=== PATIENT | female | born 1960 | race Caucasian/White ===

== ENCOUNTER 2020-05-21 21:13 | Emergency (ER) | payer OTHER ==
[2020-05-21] MEDS ORDERED: MORPHINE 4 MG/ML SYR ONE (21:53)
[2020-05-21] MEDS ORDERED: ONDANSETRON 4 MG/2 ML VIAL ONE (21:53)
[2020-05-21] MEDS ORDERED: TETANUS & DIPHTHERIA TOX,ADULT 0.5 ML VIAL ONE (22:07)
[2020-05-21] MEDS ORDERED: HYDROMORPHONE HCL 0.5 MG/0.5 ML INJ ONE (22:26)
[2020-05-21 22:32] LABS: Albumin 3.4 g/dL (3.4-5.0); Bilirubin Total 0.5 mg/dL (0.2-1.0); Protein, Total 6.8 g/dL (6.4-8.2)
[2020-05-21] MEDS ORDERED: CROTALIDAE ANTIVENIM 1 GM VIAL IV ONE (22:39)
[2020-05-21 22:42] LABS: Protime INR 0.99
[2020-05-21] MEDS ORDERED: NA CHLORIDE 0.9% 1,000 ML ONE (22:42)
[2020-05-21] MEDS ORDERED: DIPHENHYDRAMINE 50 MG/ML VIAL ONE (22:54)
--- NOTE | 2020-05-21 22:56 | ER ---
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 Noted bluish skin discoloration at dorsum of R foot and swelling of R foot. Coronavirus screen: Client denies travel out of the [place] in the last 14 days. At this time, the client does not indicate any symptoms associated with coronavirus-19. Ebola Screen: Patient negative for fever greater than or equal to 101.5 degrees Fahrenheit, and additional compatible Ebola Virus Disease symptoms Patient denies exposure to infectious person. Patient denies travel to an Ebola-affected area in the 21 days before illness onset. No symptoms or risks identified at this time. Initial Sepsis Screen: Does the patient meet any 2 criteria? No. Patient's initial sepsis screen is negative. Does the patient have a suspected source of infection? No. Patient's initial sepsis screen is negative. Risk Assessment: Do you want to hurt yourself or someone else? Patient reports no desire to harm self or others. Onset of symptoms was May 21, 2020. 16:20 Method Of Arrival: Wheelchair ca1 16:20 Acuity: MADAN 2 ca1 Triage Assessment: 21:38 Bite description: bite sustained to right foot by a snake, animal information: ea vaccination(s) is not applicable. Historical: - Home Meds: 23:11 lisinopril 10 mg oral tab 1 tab once daily [Active]; omeprazole 40 mg oral cpDR 1 cap ea once daily [Active]; venlafaxine 75 mg oral tab 1 tab 2 times per day [Active]; - PMHx: 21:34 Hypertension; ca1 - PSHx: 21:34 ; ca1 - Immunization history:: Flu vaccine is not up to date. - Social history:: Smoking status: Reported history of juuling and/or vaping. - Family history:: not pertinent. Screenin:40 Abuse screen: Denies threats or abuse. Nutritional screening: No deficits noted. ea Tuberculosis screening: No symptoms or risk factors identified. Fall Risk IV access (20 points). Assessment: 21:38 General: Appears in no apparent distress. Behavior is calm, cooperative, appropriate ea for age. Pain: Complains of pain in right leg. Neuro: Level of Consciousness is awake, alert, obeys commands, Oriented to person, place, time. Cardiovascular: Patient's skin is warm and dry. Respiratory: Airway is patent Respiratory effort is even, unlabored, Respiratory pattern is regular, symmetrical. Derm: Skin edema noted to right foot, bruising to right foot, puncture king noted near right great toe. 22:10 Reassessment: reports pain is not getting better with the morphine, provider notified, em received VO for 0.5 mg Dilaudid IVP x 1. 23:49 Reassessment: Report given to Lisa DEL TORO at [facility]. Awaiting on EMS for transfer. ea 05/22 00:00 Reassessment: Patient and/or family updated on plan of care and expected duration. Pain ea level reassessed. Patient is alert, oriented x 3, equal unlabored respirations, skin warm/dry/pink. 01:56 Reassessment: Patient and/or family updated on plan of care and expected duration. Pain ea level reassessed. Patient is alert, oriented x 3, equal unlabored respirations, skin warm/dry/pink. EMS at facility for tranfer, report given to EMS. Pt left ED via stretcher per EMS. Pt tolerating well. Vital Signs: 05/21 16:20 BP 133 / 86; Pulse 107; Resp 18 S; Temp 98.3(TE); Pulse Ox 100% on R/A; Weight 81.65 kg ca1 (R); Height 5 ft. 6 in. (167.64 cm) (R); Pain 9/10; 23:06 BP 145 / 90; Pulse 73; Resp 18; Pulse Ox 98% ; ea 05/22 00:00 BP 137 / 80; Pulse 78; Resp 18; Pulse Ox 98% on R/A; ea 01:45 BP 150 / 68; Pulse 80; Resp 18; Temp 98.2; Pulse Ox 98% ; ea 05/21 16:20 Body Mass Index 29.05 (81.65 kg, 167.64 cm) ca1 ED Course: 05/21 21:16 Patient arrived in ED. ag3 21:32 Ahmet Ariza MD is Attending Physician. ma2 21:32 Triage completed. ca1 21:34 Arm band placed on right wrist. ca1 21:38 Ave Pimentel, KATEY is Primary Nurse. ea 21:38 Inserted saline lock: 22 gauge in right hand, using aseptic technique. ea 21:40 Patient has correct armband on for positive identification. Bed in low position. Call ea light in reach. 22:38 Initiated transfer at [facility]. Was informed they would have to decline tt3 due to ICU saturation. 23:02 Inserted saline lock: 22 gauge in left antecubital area, using aseptic technique. ea 23:02 No provider procedures requiring assistance completed. Patient transferred, IV remains ea in place. 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 Lot #: [id number]. } Route: IM; Site: left deltoid; 23:00 Follow up: Response: No adverse reaction ea 22:14 Drug: Dilaudid (HYDROmorphone) 0.5 mg Route: IVP; Site: right hand; em 23:00 Follow up: Response: No adverse reaction ea 22:45 Drug: CroFab 6 vials Route: IV; Rate: calculated rate; Site: right hand; ea 23:45 Follow up: Urine output 54 ml; Response: No adverse reaction; IV Status: Completed ea infusion; IV Intake: 1000ml 22:45 Drug: Benadryl (diphenhydrAMINE) 50 mg Route: IVP; Site: right hand; ea 05/22 01:59 Follow up: Response: No adverse reaction ea 05/21 23:02 Drug: Dilaudid (HYDROmorphone) 1 mg Route: IVP; Site: right hand; ea 05/22 01:59 Follow up: Response: No adverse reaction ea 01:28 Drug: Tylenol 1000 mg Route: PO; ea 01:59 Follow up: Response: No adverse reaction ea Intake: 05/21 23:45 IV: 1000ml; Total: 1000ml. ea Output: 23:45 Urine: 54ml; Total: 54ml. ea Outcome: 22:55 ER care complete, transfer ordered by . ma2 23:03 Instructed on the need for transfer, Demonstrated understanding of instructions. ea 05/22 01:55 Transferred by ground EMS to [facility], Transfer form completed. ea Condition: stable 01:59 Patient left the ED. ea Signatures: Maximino Sierra, RN RN Ave Gaviria RN Ahmet Darling ea, MD MD ma2 Jana Jain ag3 Jalzyn Weiss RN RN [facility] Clement Cavazos tt3 Corrections: (The following items were deleted from the chart) 05/21 23:11 21:34 Allergies: No Known Allergies; [facility] 23:11 21:34 Home Meds: Lisinopril Oral; [facility] 23:11 21:34 Home Meds: Omeprazole Oral; [facility] ea
--- NOTE | 2020-05-21 22:56 | EDPHYS ---
Physician Documentation [facility] Name: Zachary Paige Age: 59 yrs Sex: Female : 1960 Arrival Date: 05/21/2020 Time: 21:16 Bed 20 Private MD: ED Physician Ahmet Ariza HPI: 05/21 21:43 This 59 yrs old Female presents to ER via Wheelchair with complaints of Snake ma2 bite. 21:43 The patient was bitten on the right foot, by a snake, COPPERMANASA. Onset: The ma2 symptoms/episode began/occurred suddenly, 0.45 hour(s) ago. Associated signs and symptoms: Pertinent negatives: fever, loss of consciousness, motor deficit, pain at site. Severity of symptoms: At their worst the symptoms were moderate, in the emergency department the symptoms are unchanged. The patient has not experienced similar symptoms in the past. Historical: - Home Meds: 23:11 lisinopril 10 mg oral tab 1 tab once daily [Active]; omeprazole 40 mg oral cpDR 1 cap ea once daily [Active]; venlafaxine 75 mg oral tab 1 tab 2 times per day [Active]; - PMHx: 21:34 Hypertension; ca1 - PSHx: 21:34 ; ca1 - Immunization history:: Flu vaccine is not up to date. - Social history:: Smoking status: Reported history of juuling and/or vaping. - Family history:: not pertinent. ROS: 21:43 Constitutional: Negative for fever, chills, and weight loss. ma2 21:44 All other systems are negative. ma2 Exam: 21:44 Constitutional: This is a well developed, well nourished patient who is awake, alert, ma2 and in no acute distress. Chest/axilla: Normal chest wall appearance and motion. Nontender with no deformity. No lesions are appreciated. Cardiovascular: Regular rate and rhythm with a normal S1 and S2. No gallops, murmurs, or rubs. Normal PMI, no JVD. No pulse deficits. Respiratory: Lungs have equal breath sounds bilaterally, clear to auscultation and percussion. No rales, rhonchi or wheezes noted. No increased work of breathing, no retractions or nasal flaring. Abdomen/GI: Soft, non-tender, with normal bowel sounds. No distension or tympany. No guarding or rebound. No evidence of tenderness throughout. Back: No spinal tenderness. No costovertebral tenderness. Full range of motion. Skin: Warm, dry with normal turgor. Normal color with no rashes, no lesions, and no evidence of cellulitis. MS/ Extremity: SNAKE BIT ON MEDIAL ASPECT OF RIGHT FOOT, WITH SWELLING AND BLUE DISCOLORATIOIN LIMITED BELOW MALLEOLI, OTHERWISE Pulses equal, no cyanosis. Neurovascular intact. Full, normal range of motion. Neuro: Awake and alert, GCS 15, oriented to person, place, time, and situation. Cranial nerves II-XII grossly intact. Motor strength 5/5 in all extremities. Sensory grossly intact. Cerebellar exam normal. Normal gait. Vital Signs: 16:20 BP 133 / 86; Pulse 107; Resp 18 S; Temp 98.3(TE); Pulse Ox 100% on R/A; Weight 81.65 kg ca1 (R); Height 5 ft. 6 in. (167.64 cm) (R); Pain 9/10; 23:06 BP 145 / 90; Pulse 73; Resp 18; Pulse Ox 98% ; ea 05/22 00:00 BP 137 / 80; Pulse 78; Resp 18; Pulse Ox 98% on R/A; ea 01:45 BP 150 / 68; Pulse 80; Resp 18; Temp 98.2; Pulse Ox 98% ; ea 05/21 16:20 Body Mass Index 29.05 (81.65 kg, 167.64 cm) ca1 MDM: 05/21 21:44 Differential diagnosis: superficial laceration, cellulitis, COPPERHEAD SNAKE BITE WITH ma2 LIMITED SWELLING AND LOCAL PAIN AT THIS TIME, AREA IS MARKED, WILL OBSERVE AND CONTINUE TO EVALUATE, NO INDICATION FOR CROFAB AT THIS TIME. 22:52 Data reviewed: vital signs, nurses notes. Counseling: I had a detailed discussion with ma2 the patient and/or guardian regarding: the historical points, exam findings, and any diagnostic results supporting the discharge/admit diagnosis, the presence of at least one elevated blood pressure reading (>120/80) during this emergency department visit, the need to transfer to another facility. Response to treatment: the patient's symptoms have markedly improved after treatment. ED course: patient requires transfer d/t received crofab d/t extension of swelling and pain 2 inches above ankle in less than an hour, vs wnl, lab non critical.. she needs icu and toxicology whcihc is not available in our hospital, will transfer for higher level of care . 22:55 Patient medically screened. ma2 05/21 21:42 Order name: CBC with Diff ma2 05/21 21:42 Order name: CMP ma2 05/21 21:42 Order name: Ptt, Activated ma2 05/21 21:42 Order name: PT-INR ma2 05/21 21:42 Order name: Fibrinogen ri2 05/21 21:42 Order name: CBC with Automated Diff EDMS 05/21 21:42 Order name: Comprehensive Metabolic Panel; Complete Time: 22:52 EDMS 05/21 21:42 Order name: PTT, Activated Partial Thromb; Complete Time: 22:52 EDMS 05/21 21:42 Order name: Protime (+INR); Complete Time: 22:52 EDMS 05/21 21:42 Order name: Fibrinogen; Complete Time: 22:52 EDMS 05/21 22:24 Order name: COVID-19 : Document "Date of Symptom Onset" if Symptomatic. 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 Lot #: [id number]. } Route: IM; Site: left deltoid; 23:00 Follow up: Response: No adverse reaction ea 22:14 Drug: Dilaudid (HYDROmorphone) 0.5 mg Route: IVP; Site: right hand; em 23:00 Follow up: Response: No adverse reaction ea 22:45 Drug: CroFab 6 vials Route: IV; Rate: calculated rate; Site: right hand; ea 23:45 Follow up: Urine output 54 ml; Response: No adverse reaction; IV Status: Completed ea infusion; IV Intake: 1000ml 22:45 Drug: Benadryl (diphenhydrAMINE) 50 mg Route: IVP; Site: right hand; ea 05/22 01:59 Follow up: Response: No adverse reaction ea 05/21 23:02 Drug: Dilaudid (HYDROmorphone) 1 mg Route: IVP; Site: right hand; ea 05/22 01:59 Follow up: Response: No adverse reaction ea 01:28 Drug: Tylenol 1000 mg Route: PO; ea Follow up: Response: No adverse reaction ea Disposition: 05/21/20 22:55 Transfer ordered to [facility]. Diagnosis is Toxic effect of unspecified snake venom, accidental (unintentional). - Reason for transfer: Higher level of care. - Accepting physician is OSH. - Condition is Stable. - Problem is new. - Symptoms are unchanged. Signatures: Dispatcher [employer] EDMS Maximino Sierra RN RN em Antunez, Elena, RN RN ea Alzahri, Mohammad, MD MD ri2 Jazlyn Weiss RN RN ca1 Corrections: (The following items were deleted from the chart) 05/21 22:40 22:24 CORONAVIRUS ordered. EDMS EDMS 23:11 21:34 Allergies: No Known Allergies; ca1 ea 23:11 21:34 Home Meds: Lisinopril Oral; ca1 ea 23:11 21:34 Home Meds: Omeprazole Oral; ca1 ea 05/22 01:59 05/21 22:55 05/21/2020 22:55 Transfer ordered to [facility]. Diagnosis is ea Toxic effect of unspecified snake venom, accidental (unintentional). Reason for transfer: Higher level of care. Accepting physician is OSH. Condition is Stable. Problem is new. Symptoms are unchanged. maKendall
[2020-05-21] MEDS ORDERED: HYDROMORPHONE HCL 1 MG/ML INJ ONE (23:05)
[2020-05-21 23:11] LABS: Absolute Lymphocytes (CBC) 1.9 K/uL (0.7-4.9); Basophils % 0.7 % (0-1.3); Hematocrit 37.4 % (36.0-45.0); Lymphocytes % 31.8 % (15.3-44.8); MPV 9.7 fL (7.6-11.3); RBC Red Blood Cell Count 4.19 M/uL (3.86-4.86)
[2020-05-22] MEDS ORDERED: ACETAMINOPHEN 500 MG TAB ONE (01:15)
[2020-05-22 02:12] VITALS: O2SAT 98
[2020-05-22 02:15] VITALS: BP 150/68; TEMP 98.2
== END 2020-05-22 01:59 | disposition short-term general hospital (02) ==
LOC: ER 21:13
DX: T63.091A Toxic effect of venom of other snake, accidental (unintentional), initial encounter (principal); Z23 Encounter for immunization; F17.290 Nicotine dependence, other tobacco product, uncomplicated; I10 Essential (primary) hypertension; Z20.822 Contact with and (suspected) exposure to COVID-19
CPT/HCPCS: 85025; 36415; 85384; 85610; 85730; 80053; 90714; U0003; J1200; J0840; J1170 ×2; J7030; J2405; 90471; 99285

== ENCOUNTER 2021-10-10 04:41 | Emergency (ER) | payer OTHER ==
[2021-10-10] MEDS ORDERED: MORPHINE 2 MG/ML SYR ONE (05:14)
[2021-10-10] MEDS ORDERED: NA CHLORIDE 0.9% 1,000 ML ONE (05:14)
[2021-10-10] MEDS ORDERED: ONDANSETRON 4 MG/2 ML VIAL ONE (05:14)
[2021-10-10 06:44] LABS: Absolute Lymphocytes (CBC) 1.6 K/uL (0.7-4.9); Hematocrit 38.1 % (36.0-45.0); Lymphocytes % 18.2 % (15.3-44.8); MCV 87.3 fL (80-100); MPV 8.8 fL (7.6-11.3); RBC Red Blood Cell Count 4.37 M/uL (3.86-4.86)
[2021-10-10 06:55] LABS: Bilirubin Total 0.6 mg/dL (0.2-1.0); Potassium 3.9 mmol/L (3.5-5.1); Protein, Total 6.1 g/dL (6.4-8.2)
[2021-10-10 07:14] LABS: Urine Blood Negative (Negative); Urine Glucose Negative (Negative); Urine Protein Negative (Negative); Urine Specific Gravity <=1.005 (1.005-1.030)
--- NOTE | 2021-10-10 07:15 | RAD REPORT ---
EXAM DESCRIPTION: CT - Head Brain Wo Cont - 10/10/2021 6:53 am CLINICAL HISTORY: new headache, vomiting COMPARISON: CT head 05/24/2008 TECHNIQUE: Axial 5 mm thick images of the head were obtained without IV contrast. All CT scans are performed using dose optimization technique as appropriate and may include automated exposure control or mA/KV adjustment according to patient size. FINDINGS: No intracranial hemorrhage, mass, edema or shift of mid-line structures. No acute infarcti on changes seen. No abnormal extra-axial fluid collections. Ventricles are normal. Mastoid air cells are clear. Right-sided sphenoid sinus is fully opacified with thickened sinus cerrato . This was present to a slightly less degree in 2008. No acute bony findings. IMPRESSION: Negative non-contrast CT head examination for acute fine. Chronic sphenoid sinusitis.
--- NOTE | 2021-10-10 07:18 | RAD REPORT ---
EXAM DESCRIPTION: CT - Abdomen Pelvis W Contrast - 10/10/2021 7:00 am CLINICAL HISTORY: Abdominal pain, acute, nonlocalized COMPARISON: CT ABD PELVIS W CONTRAST dated 04/01/2015 TECHNIQUE: Biphasic, helical CT imaging of the abdomen and pelvis was performed following 100 ml non -ionic IV contrast. No oral contrast administered. All CT scans are performed using dose optimization technique as appropriate and may include automated exposure control or mA/KV adjustment according to patient size. FINDINGS: No suspicious findings in the lung bases. The liver, spleen, and pancreas show no suspicious findings. Punctate liver capsule and parenchymal c alcifications are present and stable. No gallbladder or biliary tree abnormality. Symmetric renal function is seen with no hydronephrosis or suspicious renal mass. No pyelonephritis o r acute parenchymal process. No bladder abnormalities. No new adrenal finding. Approximately 16 ti meter low-density left adrenal mass is stable since 2016. Uterus and ovaries show no suspicious findi ngs for patient age. No dilated bowel loops or bowel wall thickening. Patient has a mobile cecum positioned in the anterio r right mid abdomen. No appendicitis findings. No free air, free fluid or inflammatory stranding. No hernia, mass or bulky lymphadenopathy. No suspicious bony findings. Disc and bone degenerative changes are present. IMPRESSION: Contrast enhanced CT abdomen and pelvis showing no acute or emergent finding.
[2021-10-10 07:26] LABS: Urine Bacteria <20 /HPF (<20); Urine RBC <5 /HPF (None Seen)
[2021-10-10] MEDS ORDERED: KETOROLAC 30 MG/ML INJ ONE (08:05)
--- NOTE | 2021-10-10 08:16 | ER ---
Nurse's Notes [facility] Name: Zachary Paige Age: 61 yrs Sex: Female : 1960 Arrival Date: 10/10/2021 Time: 04:45 Bed 14 Private MD: Diagnosis: Myalgia;Headache;Abdominal pain, Generalized;Muscle spasm Presentation: 10/10 04:49 Chief complaint: EMS states: Abdominal pain, N/V , legs cramps and headache since 5 ke1 days. Coronavirus screen: Vaccine status: Patient reports being unvaccinated. Ebola Screen: No symptoms or risks identified at this time. Initial Sepsis Screen: Does the patient meet any 2 criteria? No. Patient's initial sepsis screen is negative. Does the patient have a suspected source of infection? No. Patient's initial sepsis screen is negative. Risk Assessment: Do you want to hurt yourself or someone else? Patient reports no desire to harm self or others. Onset of symptoms was October 05, 2021. 04:49 Method Of Arrival: EMS: [place] [id number] 04:49 Acuity: MADAN 3 ke1 Triage Assessment: 04:53 General: Appears in no apparent distress. Behavior is appropriate for age. Pain: ke1 Complains of pain in abdomen + both legs Pain currently is 7 out of 10 on a pain scale. Quality of pain is described as crampy. 04:58 Neuro: Level of Consciousness is awake, alert, Oriented to person, place, time, ke1 situation. Respiratory: Respiratory effort is even, unlabored. Musculoskeletal: Range of motion: intact in all extremities. Historical: - Allergies: 04:53 No Known Allergies; ke1 - PMHx: 04:53 Hypertension; ke1 - Immunization history:: Adult Immunizations Client reports having NOT received the Covid vaccine. - Social history:: Smoking status: Patient/guardian denies using tobacco, the patient reports quitting approximately 3 years ago. - Family history:: not pertinent. - Hospitalizations: : No recent hospitalization is reported. Screenin:58 Abuse screen: Denies threats or abuse. Nutritional screening: No deficits noted. ke1 Tuberculosis screening: No symptoms or risk factors identified. Fall Risk No fall in past 12 months (0 pts). No secondary diagnosis (0 pts). No IV (0 pts). Ambulatory Aid- None/Bed Rest/Nurse Assist (0 pts). Gait- Weak (10 pts.). Mental Status- Oriented to own ability (0 pts). Total Díaz Fall Scale indicates No Risk (0-24 pts). Assessment: 05:35 Pain: Complains of pain in headache, abdomen and legs Pain currently is 7 out of 10 on 3 a pain scale. at worst was 10 out of 10 on a pain scale. 05:40 Reassessment: Unable to draw blood, labs called to collect blood. ll3 07:05 Reassessment: No changes from previously documented assessment. report received from [facility] material handler 1st shift RN. Awaiting to obtain UA sample and CT results. 07:20 Reassessment: Still complains of SUH and legs aching. Dr. Pastrana notified that she would [facility] like more pain medicine. 08:00 Reassessment: No changes from previously documented assessment. Dr. Brewer updated about [facility] patient pain complaints. IV Toradol given. Vital Signs: 04:49 BP 115 / 80; Pulse 97; Resp 19; Temp 98.4(O); Pulse Ox 100% ; Weight 81.65 kg; Height 5 ke1 ft. 6 in. (167.64 cm); Pain 7/10; 07:25 BP 129 / 79; Pulse 86; Resp 18; Pulse Ox 97% ; Pain 9/10; ll1 08:35 BP 135 / 90; Pulse 77; Resp 17; Pulse Ox 99% on R/A; ll1 04:49 Body Mass Index 29.05 (81.65 kg, 167.64 cm) ke1 ED Course: 04:45 Patient arrived in ED. ke1 04:49 Azra Gurrola, RN is Primary Nurse. ke1 04:51 Isaiah Pastrana MD is Attending Physician. rn 04:53 Triage completed. ke1 04:59 Bed in low position. ke1 05:00 Maintain EMS IV. Site clean \T\ dry. Gauge \T\ site: 22 g LFA. ke 1 05:40 Arm band placed on. ll3 06:55 CT Head Brain wo Cont In Process Unspecified. EDMS 07:01 CT Abd/Pelvis - IV Contrast Only In Process Unspecified. EDMS 07:14 Urine Microscopic Only Sent. ll1 07:52 Attending Physician role handed off by Isaiah Pastrana MD ms3 07:52 Can Brewer DO is Attending Physician. ms3 08:13 Luis Liz DO is Referral Physician. ms3 08:38 No provider procedures requiring assistance completed. IV discontinued, intact, ll1 bleeding controlled, No redness/swelling at site. Pressure dressing applied. Administered Medications: 05:39 Drug: NS 0.9% 1000 ml Route: IV; Rate: 1000 ml; Site: left forearm; ll3 08:37 Follow up: Response: No adverse reaction; IV Status: Completed infusion; IV Intake: ll1 1200ml 05:39 Drug: morphine 2 mg Route: IVP; Infused Over: 4 mins; Site: left forearm; ll3 06:10 Follow up: Response: Pain is unchanged, physician notified ke1 05:39 Drug: Zofran (Ondansetron) 4 mg Route: IVP; Site: left forearm; ll3 06:10 Follow up: Response: Nausea is decreased ke1 08:00 Drug: Ketorolac 10 mg {Note: pain 9/10 SUH and leg cramps. RASS 0.} Route: IVP; Site: ll1 left forearm; 08:37 Follow up: Response: No adverse reaction; Pain is unchanged, physician notified; RASS: ll1 Alert and Calm (0) Medication: 08:39 VIS not applicable for this client. ll1 Intake: 08:37 IV: 1200ml; Total: 1200ml. ll1 Outcome: 08:15 Discharge ordered by . ms3 08:38 Discharged to home via wheelchair. ll1 08:38 Condition: stable 08:38 Discharge instructions given to patient, Instructed on discharge instructions, follow up and referral plans. no drinking with medication, no driving heavy equipment, medication usage, Demonstrated understanding of instructions, follow-up care, medications, Prescriptions given X 1. 08:39 Patient left the ED. ll1 Signatures: Dispatcher [employer] EDMS Isaiah Pastrana MD MD rn Lewis, Lynsay, RN RN 1 Can Brewer DO DO ms3 Fidelina Gonzalez RN RN ll3 Azra Gurrola RN RN ke1
--- NOTE | 2021-10-10 08:16 | EDPHYS ---
Physician Documentation [facility] Name: Zachary Paige Age: 61 yrs Sex: Female : 1960 Arrival Date: 10/10/2021 Time: 04:45 Bed 14 Private MD: ED Physician Can Brewer HPI: 10/10 05:01 This 61 yrs old Female presents to ER via EMS with complaints of headache, malaise, rn cramps. 05:01 Pt reports a few days of headache, muscle cramps, generalized weakness, dizziness, rn nausea/vomiting. No head injury or trauma. NO new medication or cessation. Denies drugs or ETOH. Denies focal neuro complaint. Does reports abd cramping and vomiting x 2, no blood. Does report decrease urination. patient states she feels like she is dehydrated. . Onset: The symptoms/episode began/occurred 3 day(s) ago. Severity of symptoms: At their worst the symptoms were moderate in the emergency department the symptoms are unchanged. The patient has not experienced similar symptoms in the past. The patient has not recently seen a physician. Historical: - Allergies: 04:53 No Known Allergies; ke1 - PMHx: 04:53 Hypertension; ke1 - Immunization history:: Adult Immunizations Client reports having NOT received the Covid vaccine. - Social history:: Smoking status: Patient/guardian denies using tobacco, the patient reports quitting approximately 3 years ago. - Family history:: not pertinent. - Hospitalizations: : No recent hospitalization is reported. ROS: 05:01 Constitutional: Negative for fever, chills, and weight loss, Eyes: Negative for injury, rn pain, redness, and discharge, Neck: Negative for injury, pain, and swelling, Cardiovascular: Negative for chest pain, palpitations, and edema, Respiratory: Negative for shortness of breath, cough, wheezing, and pleuritic chest pain, Abdomen/GI: + for constipation Back: Negative for injury and pain, : Negative for injury, bleeding, discharge, and swelling, MS/Extremity: Negative for injury and deformity, Skin: Negative for injury, rash, and discoloration, Neuro: + headache and generalized weakness Exam: 05:01 Constitutional: This is a well developed, well nourished patient who is awake, alert, rn and in no acute distress. Head/Face: Normocephalic, atraumatic. Eyes: Periorbital areas with no swelling, redness, or edema. ENT: dry MM Neck: Trachea midline, no thyromegaly or masses palpated, and no cervical lymphadenopathy. Supple, full range of motion without nuchal rigidity, or vertebral point tenderness. No Meningismus. Cardiovascular: Regular rate and rhythm. No pulse deficits. Respiratory: No increased work of breathing, no retractions or nasal flaring. Abdomen/GI: soft, + mild mid-abdominal tenderness Skin: Warm, dry MS/ Extremity: Pulses equal, no cyanosis. Neurovascular intact. Full, normal range of motion. Equal circumference. Neuro: Awake and alert, GCS 15, oriented to person, place, time, and situation. Cranial nerves II-XII grossly intact. Motor strength 4/5 in all extremities. Sensory grossly intact. 05:14 ECG was reviewed by the Attending Physician. rn Vital Signs: 04:49 BP 115 / 80; Pulse 97; Resp 19; Temp 98.4(O); Pulse Ox 100% ; Weight 81.65 kg; Height 5 ke1 ft. 6 in. (167.64 cm); Pain 7/10; 07:25 BP 129 / 79; Pulse 86; Resp 18; Pulse Ox 97% ; Pain 9/10; ll1 08:35 BP 135 / 90; Pulse 77; Resp 17; Pulse Ox 99% on R/A; ll1 04:49 Body Mass Index 29.05 (81.65 kg, 167.64 cm) ke1 MDM: 04:52 Patient medically screened. rn 15:31 Data reviewed: vital signs, nurses notes, lab test result(s), radiologic studies, and ms3 as a result, I will discharge patient. Counseling: I had a detailed discussion with the patient and/or guardian regarding: the historical points, exam findings, and any diagnostic results supporting the discharge/admit diagnosis, lab results, radiology results, the need for outpatient follow up, to return to the emergency department if symptoms worsen or persist or if there are any questions or concerns that arise at home. Special discussion: I discussed with the patient/guardian in detail that at this point there is no indication for admission to the hospital. It is understood, however, that if the symptoms persist or worsen the patient needs to return immediately for re-evaluation. ED course: Labs and CT were discussed with patient. Patient to follow-up with primary care physician as discussed. All questions were answered. Return precautions discussed include worsening symptoms, or any other concerns. On reevaluation patient was alert and oriented x4, in no apparent distress, nontoxic-appearing, speaking full sentences.. 10/10 04:55 Order name: SARS-COV-2 RT PCR (Document "Date of Onset" if Symptomatic); Complete Time: rn 06:58 10/10 04:55 Order name: CBC with Diff; Complete Time: 06:58 rn 10/10 04:55 Order name: Urine Microscopic Only; Complete Time: 07:52 rn 10/10 04:55 Order name: CMP; Complete Time: 06:58 rn 10/10 04:55 Order name: Lipase; Complete Time: 06:58 rn 10/10 04:56 Order name: CK; Complete Time: 06:58 rn 10/10 04:55 Order name: CT Head Brain wo Cont; Complete Time: 07:52 rn 10/10 04:55 Order name: CT Abd/Pelvis - IV Contrast Only; Complete Time: 07:52 rn 10/10 07:14 Order name: Urine Dipstick-Ancillary; Complete Time: 07:52 EDMS 10/10 07:17 Order name: CREATININE WHOLE BLOOD; Complete Time: 07:52 EDMS 10/10 04:55 Order name: IV Start; Complete Time: 05:39 rn 10/10 04:55 Order name: Urine Dipstick-Ancillary (obtain specimen); Complete Time: 07:14 rn 10/10 04:55 Order name: EKG; Complete Time: 04:56 rn 10/10 04:55 Order name: EKG - Nurse/Tech; Complete Time: 05:16 rn EC:14 Rate is 83 beats/min. Rhythm is regular. QRS [facility] is Normal. [place] interval is normal. QRS rn interval is normal. QT interval is normal. No Q waves. No ST changes noted. Clinical impression: NSR w/ Non-specific ST/T Changes. Interpreted by me. Reviewed by me. Administered Medications: 05:39 Drug: NS 0.9% 1000 ml Route: IV; Rate: 1000 ml; Site: left forearm; ll3 08:37 Follow up: Response: No adverse reaction; IV Status: Completed infusion; IV Intake: ll1 1200ml 05:39 Drug: morphine 2 mg Route: IVP; Infused Over: 4 mins; Site: left forearm; ll3 06:10 Follow up: Response: Pain is unchanged, physician notified ke1 05:39 Drug: Zofran (Ondansetron) 4 mg Route: IVP; Site: left forearm; ll3 06:10 Follow up: Response: Nausea is decreased ke1 08:00 Drug: Ketorolac 10 mg {Note: pain 9/10 SUH and leg cramps. RASS 0.} Route: IVP; Site: ll1 left forearm; 08:37 Follow up: Response: No adverse reaction; Pain is unchanged, physician notified; RASS: ll1 Alert and Calm (0) Disposition Summary: 10/10/21 08:15 Discharge Ordered Location: Home ms3 Condition: Stable ms3 Diagnosis - Myalgia ms3 - Headache ms3 - Abdominal pain, Generalized ms3 - Muscle spasm ms3 Followup: ms3 - With: Luis Liz DO - When: 2 - 3 days - Reason: Recheck today's complaints, Re-evaluation by your physician Discharge Instructions: - Discharge Summary Sheet ms3 - General Headache Without Cause ms3 - Viral Illness, Adult ms3 Forms: - Medication Reconciliation Form ms3 - Thank You Letter ms3 - Antibiotic Education ms3 - Prescription Opioid Use ms3 Prescriptions: - Cyclobenzaprine 5 mg Oral Tablet - take 1 tablet by ORAL route 3 times per day As needed; 15 tablet; Refills: 0, ms3 Product Selection Permitted Signatures: Dispatcher [employer] EDMS Isaiah Pastrana MD MD rn Lewis, Lynsay RN RN ll1 Can Brewer DO DO ms3 Fidelina Gonzalez RN RN ll3 Azra Gurrola RN RN ke1
[2021-10-10 09:19] VITALS: TEMP 98.4
[2021-10-10 09:25] VITALS: BP 135/90; O2SAT 99
--- NOTE | 2021-10-10 13:55 | EKG ---
Test Date: 2021-10-10 Test Time: 05:12:12 [employer] Worker: PHONG MEASUREMENT RESULTS: Intervals: Rate: 83 FL: 138 QRSD: 72 QT: 362 QTc: 425 Superior: P: 34 FL: 138 QRS: -2 T: 72 INTERPRETIVE STATEMENTS: Normal sinus rhythm Nonspecific T wave abnormality Abnormal ECG Compared to ECG 03/14/2021 14:08:09 T-wave abnormality now present Sinus bradycardia no longer present Prolonged QT interval no longer present Electronically Signed On 10-10-21 13:54:57 CDT by Giorgio Riggs
== END 2021-10-10 08:39 | disposition home or self-care (01) ==
LOC: ER 04:41
DX: R51.9 Headache, unspecified (principal); R10.84 Generalized abdominal pain; M62.838 Other muscle spasm; I10 Essential (primary) hypertension; Z20.822 Contact with and (suspected) exposure to COVID-19
CPT/HCPCS: 96361; 93005; 85025; 36415; 82550; 82565; 83690; 80053; 70450; 74177; 96375; 96374; 99284; U0003; Q9967; J2270; J7030; J2405; 81003; 81015

== ENCOUNTER 2023-01-27 17:49 | Inpatient (IN) | payer OTHER ==
[2023-01-27 18:32] LABS: Absolute Lymphocytes (CBC) 2.1 K/uL (0.7-4.9); Hematocrit 39.5 % (36.0-45.0); Lymphocytes % 25.9 % (15.3-44.8); MCV 89.8 fL (80-100); MPV 9.1 fL (7.6-11.3); Platelets 266 thou/uL (152-406); Specific Gravity 1.023 (1.005-1.030); Urine Bacteria <20 /HPF (<20); Urine Bilirubin NEGATIVE (Negative); Urine Blood Negative (Negative); Urine Clarity Extremely Turbid (Clear); Urine Color Dark-Yellow (Yellow); Urine Crystals Unidentified Few /HPF (None Seen); Urine Glucose NEGATIVE (Negative); Urine Mucus 1+ /HPF (None Seen); Urine Protein TRACE (Negative); Urine RBC <5 /HPF (None Seen); Urine Urobilinogen Normal (Normal)
[2023-01-27] MEDS ORDERED: CYCLOBENZAPRINE 10 MG TAB ONE (18:47)
[2023-01-27 18:51] LABS: Albumin 3.2 g/dL (3.4-5.0); Bilirubin Total 0.6 mg/dL (0.2-1.0); Potassium 4.1 mEq/L (3.5-5.1); Protein, Total 6.5 g/dL (6.4-8.2)
--- NOTE | 2023-01-27 19:59 | RAD REPORT ---
EXAM DESCRIPTION: CTAbdomen Pelvis W Contrast - 01/27/2023 7:42 pm CLINICAL HISTORY: Abdominal pain. ABD PAIN COMPARISON: Abdomen Pelvis W Contrast dated 10/10/2021; CT ABD PELVIS W CONTRAST dated 04/01/2015; CT ABD PELVIS W CONTRAST dated 09/14/2008 TECHNIQUE: Biphasic CT imaging of the abdomen and pelvis was performed with 100 ml non-ionic IV cont rast. All CT scans are performed using dose optimization technique as appropriate and may include automated exposure control or mA/KV adjustment according to patient size. FINDINGS: The lung bases are clear.Small hiatal hernia. The liver, spleen, pancreas, adrenal glands and kidneys are within normal limits. No bowel obstruction, free air, free fluid or abscess. Small fat containing umbilical hernia. The amol endix is not identified as a discrete structure, however, no secondary findings of appendicitis are i dentified. No evidence of significant lymphadenopathy. Mild lower lumbar degenerative changes. IMPRESSION: No acute intra-abdominal or pelvic finding.
[2023-01-27] MEDS ORDERED: NA CHLORIDE 0.9% 1,000 ML ONE (20:57)
[2023-01-27] MEDS ORDERED: KETOROLAC 30 MG/ML INJ ONE (20:57)
--- NOTE | 2023-01-27 22:01 | ER ---
Nurse's Notes [facility] Name: Zachary Paige Age: 62 yrs Sex: Female : 1960 Arrival Date: 01/27/2023 Time: 17:49 Bed 19 Private MD: Diagnosis: Weakness;Cramp and spasm Presentation: 01/27 17:55 Chief complaint: EMS states: toned out to patient home for being unable to walk and jeremy ld1 leg cramping X 1 year. Coronavirus screen: At this time, the client does not indicate any symptoms associated with coronavirus-19. Ebola Screen: No symptoms or risks identified at this time. Risk Assessment: Do you want to hurt yourself or someone else? Patient reports no desire to harm self or others. Onset of symptoms was January 27, 2023 at 17:56. 17:55 Method Of Arrival: EMS: [facility] ld1 17:55 Acuity: MADAN 3 ld1 19:00 Initial Sepsis Screen: Does the patient meet any 2 criteria? No. Patient's initial jw7 sepsis screen is negative. Does the patient have a suspected source of infection? No. Patient's initial sepsis screen is negative. Triage Assessment: 17:55 General: Appears in no apparent distress. comfortable, Behavior is calm, cooperative, ld1 appropriate for age. Pain: Complains of pain in right leg and left leg Pain does not radiate. Pain currently is 8 out of 10 on a pain scale. Quality of pain is described as tingling. EENT: No signs and/or symptoms were reported regarding the EENT system. Neuro: Level of Consciousness is awake, alert, obeys commands, Oriented to person, place, time, situation. Cardiovascular: Capillary refill < 3 seconds Patient's skin is warm and dry. Respiratory: Airway is patent Respiratory effort is even, unlabored. GI: Abdomen is round non-distended. : No signs and/or symptoms were reported regarding the genitourinary system. : Reports inability to void. Derm: No signs and/or symptoms reported regarding the dermatologic system. Musculoskeletal: No signs and/or symptoms reported regarding the musculoskeletal system. Historical: - Allergies: 17:50 No Known Allergies; ld1 - PMHx: 17:50 Hypertension; Depressive disorder; ld1 - Immunization history:: Adult Immunizations up to date. - Social history:: Smoking status: Patient denies any tobacco usage or history of. Patient/guardian denies using alcohol. Screenin:57 [facility] ED Fall Risk Assessment (Adult) History of falling in the last 3 months, ld1 including since admission No falls in past 3 months (0 pts). Abuse screen: Denies threats or abuse. Denies injuries from another. Nutritional screening: No deficits noted. Tuberculosis screening: No symptoms or risk factors identified. Assessment: 17:57 Reassessment: See triage assessment. ld1 19:00 Reassessment: Patient appears in no apparent distress at this time. No changes from jw7 previously documented assessment. Patient and/or family updated on plan of care and expected duration. Pain level reassessed. Patient is alert, oriented x 3, equal unlabored respirations, skin warm/dry/pink. 20:00 Reassessment: Patient appears in no apparent distress at this time. No changes from jw7 previously documented assessment. Patient and/or family updated on plan of care and expected duration. Pain level reassessed. Patient is alert, oriented x 3, equal unlabored respirations, skin warm/dry/pink. 21:10 Reassessment: Patient appears in no apparent distress at this time. No changes from jw7 previously documented assessment. Patient and/or family updated on plan of care and expected duration. Pain level reassessed. Patient is alert, oriented x 3, equal unlabored respirations, skin warm/dry/pink. 22:00 Reassessment: Patient appears in no apparent distress at this time. Patient and/or jw7 family updated on plan of care and expected duration. Pain level reassessed. Patient is alert, oriented x 3, equal unlabored respirations, skin warm/dry/pink. Patient states symptoms have improved. 23:00 Reassessment: Patient appears in no apparent distress at this time. No changes from jw7 previously documented assessment. Patient and/or family updated on plan of care and expected duration. Pain level reassessed. Patient is alert, oriented x 3, equal unlabored respirations, skin warm/dry/pink. 01/28 00:11 Reassessment: Patient appears in no apparent distress at this time. Patient and/or jw7 family updated on plan of care and expected duration. Pain level reassessed. Patient is alert, oriented x 3, equal unlabored respirations, skin warm/dry/pink. 00:49 General: attempted to call report, no answer. jw7 Vital Signs: 01/27 18:10 BP 151 / 84; Pulse 71; Resp 18; Temp 98.3(TE); Pulse Ox 99% on R/A; Weight 84.37 kg; ld1 Height 5 ft. 4 in. ; Pain 7/10; 18:53 BP 155 / 65; Pulse 69; Resp 18; Pulse Ox 99% on R/A; ld1 19:00 BP 149 / 66; Pulse 64; Resp 17 S; Pulse Ox 98% on R/A; jw7 20:00 BP 142 / 67; Pulse 60; Resp 17 S; Pulse Ox 98% on R/A; jw7 21:30 BP 132 / 58; Pulse 58; Resp 16 S; Pulse Ox 98% on R/A; jw7 22:18 BP 134 / 67; Pulse 53; Resp 16 S; Pulse Ox 99% on R/A; jw7 23:00 BP 111 / 97; Pulse 50; Resp 15 S; Pulse Ox 97% on R/A; jw7 01/28 00:00 BP 118 / 70; Pulse 51; Resp 14 S; Pulse Ox 96% on R/A; jw7 01/27 18:10 Body Mass Index 31.93 (84.37 kg, 162.56 cm) ld1 01/27 18:10 Pain Scale: Adult ld1 ED Course: 01/27 17:50 Patient arrived in ED. ld1 17:55 Nancie Brewer, RN is Primary Nurse. ld1 17:55 Arm band placed on right wrist. ld1 17:56 Triage completed. ld1 17:57 Patient has correct armband on for positive identification. Placed in gown. Bed in low ld1 position. Call light in reach. Side rails up X2. surveillance monitor on. Pulse ox on. NIBP on. Door closed. Noise minimized. Warm blanket given. 17:57 No provider procedures requiring assistance completed. ld1 17:59 Lauren Carpenter FNP-C is PHCP. kb 17:59 Osman Mejia MD is Attending Physician. kb 18:21 Urinalysis w/ reflexes Sent. ld1 18:21 Inserted saline lock: 22 gauge in right antecubital area, using aseptic technique. ld1 Blood collected. 18:53 purewick applied to patient. ld1 19:44 CT Abd/Pelvis - IV Contrast Only In Process Unspecified. EDMS 23:03 Neftali Aguirre MD is Hospitalizing Provider. kb 01/28 00:00 Provided Education on: need for admit. jw7 01:00 Inserted saline lock: 24 gauge in right wrist, using aseptic technique. Blood collected.oe 01:46 Medrano cath inserted, using sterile technique, 16 Fr., by correctional maintenance technician, balloon inflated, to jw7 gravity drainage, returned 700ml of urine drained. Patient tolerated well. 01:48 Patient admitted, IV remains in place. jw7 Administered Medications: 01/27 18:53 Drug: Cyclobenzaprine PO 10 mg PO once Route: PO; ld1 21:13 Follow up: Response: No adverse reaction jw7 21:13 Drug: Ketorolac IVP 15 mg IVP once Route: IVP; Site: right antecubital; jw7 22:32 Follow up: Response: No adverse reaction; Marked relief of symptoms jw7 21:13 Drug: NS 0.9% IV 1000 ml IV at 1000 ml once Route: IV; Rate: 1000 ml; Site: right jw7 antecubital; 01/28 00:50 Follow up: Response: No adverse reaction; IV Status: Infusion continued upon admission; jw7 IV Intake: 200ml Medication: 01/27 17:57 VIS not applicable for this client. ld1 Intake: 01/28 00:50 IV: 200ml; Total: 200ml. jw7 Outcome: 01/27 22:00 Discharge ordered by . kb 23:04 Decision to Hospitalize by Provider. kb 01/28 01:47 Admitted to Med/surg accompanied by mars, via stretcher, room 220, jw7 Condition: stable Instructed on the need for admit, Demonstrated understanding of instructions, 01:48 Patient left the ED. jw7 Signatures: Dispatcher [employer] EDMS Lauren Carpenter, TOMER LIAOP-Charles Mendez Lauren, RN RN ld1 Barby Valdez RN RN jw7 Corrections: (The following items were deleted from the chart) 00:12 01/27 22:18 General: discharge pending completion of IV fluids. jw7 jw7 01/28 00:14 01/27 22:32 Provided Education on: discharge instructions. jw7 jw7 01/28 00:51 01/27 23:00 BP 111 / 97; Pulse 50bpm; Resp 17bpm; Spontaneous; Pulse Ox 97% RA; jw7 jw7 01/28 00:51 00:00 BP 118 / 70; Pulse 51bpm; Resp 17bpm; Spontaneous; Pulse Ox 96% RA; jw7 jw7
--- NOTE | 2023-01-27 22:01 | EDPHYS ---
Physician Documentation [facility] Name: Zachary Paige Age: 62 yrs Sex: Female : 1960 Arrival Date: 01/27/2023 Time: 17:49 Bed 19 Private MD: ED Physician Osman Mejia HPI: 01/28 00:34 This 62 yrs old Female presents to ER via EMS with complaints of Leg Pain, Can't walk, kb Urinary Problem. 00:34 Patient is a 62-year-old female who presents for leg cramps, leg weakness, difficulty kb urinating and having BMs. States she has had leg cramps and leg weakness constantly for a year and a half that has become worse over the last week. States today the cramps were so bad that she could not walk. States has been to 3 neurologist in the past and nobody has been able to figure out the cause of the cramps and weakness.. Historical: - Allergies: 01/27 17:50 No Known Allergies; ld1 - PMHx: 17:50 Hypertension; Depressive disorder; ld1 - Immunization history:: Adult Immunizations up to date. - Social history:: Smoking status: Patient denies any tobacco usage or history of. Patient/guardian denies using alcohol. ROS: 01/28 00:32 Constitutional: Negative for fever, chills, and weight loss, kb Abdomen/GI: Positive for abdominal pain, constipation, Negative for nausea, vomiting, and diarrhea, : Positive for difficulty urinating, MS/extremity: Positive for cramps in bilateral lower extremities, All other systems are negative, Exam: 00:32 Constitutional: This is a well developed, well nourished patient who is awake, alert, kb and in no acute distress. Head/Face: Normocephalic, atraumatic. ENT: Moist Mucous membranes Cardiovascular: Regular rate Respiratory: Respirations even and unlabored. No increased work of breathing. Talking in full sentences Skin: Warm, dry with normal turgor. Normal color. MS/ Extremity: Pulses equal, no cyanosis. Neurovascular intact. Full, normal range of motion. Neuro: Awake and alert, GCS 15, oriented to person, place, time, and situation. Moves all extremities. Normal gait. 00:32 Abdomen/GI: Inspection: abdomen appears normal, Bowel sounds: normal, Palpation: soft, in all quadrants, moderate abdominal tenderness, in the left upper quadrant and left lower quadrant, Vital Signs: 01/27 18:10 BP 151 / 84; Pulse 71; Resp 18; Temp 98.3(TE); Pulse Ox 99% on R/A; Weight 84.37 kg; ld1 Height 5 ft. 4 in. ; Pain 7/10; 18:53 BP 155 / 65; Pulse 69; Resp 18; Pulse Ox 99% on R/A; ld1 19:00 BP 149 / 66; Pulse 64; Resp 17 S; Pulse Ox 98% on R/A; jw7 20:00 BP 142 / 67; Pulse 60; Resp 17 S; Pulse Ox 98% on R/A; jw7 21:30 BP 132 / 58; Pulse 58; Resp 16 S; Pulse Ox 98% on R/A; jw7 22:18 BP 134 / 67; Pulse 53; Resp 16 S; Pulse Ox 99% on R/A; jw7 23:00 BP 111 / 97; Pulse 50; Resp 15 S; Pulse Ox 97% on R/A; jw7 01/28 00:00 BP 118 / 70; Pulse 51; Resp 14 S; Pulse Ox 96% on R/A; jw7 01/27 18:10 Body Mass Index 31.93 (84.37 kg, 162.56 cm) ld1 01/27 18:10 Pain Scale: Adult ld1 MDM: 01/27 17:59 Patient medically screened. kb 01/28 00:33 Differential diagnosis: abnormal electrolytes, chronic pain, UTI, diverticulitis, kb colitis, constipation, bowel obstruction. Data reviewed: vital signs, nurses notes. Consideration of Admission/Observation Patient was admitted/placed on observation. Escalation of care including admission/observation considered. Management of patient was discussed with the following: Hospitalist: Dr. Aguirre accepts patient for admission. 00:33 Historians other than the Patient: [place] [facility] Counseling: I had a detailed kb discussion with the patient and/or guardian regarding the historical points, exam findings, and any diagnostic results supporting the discharge/admit diagnosis, lab results, the need for further work-up and treatment in the hospital. 01/27 18:05 Order name: CBC with Diff; Complete Time: 18:40 kb 01/27 18:05 Order name: CMP; Complete Time: 00:14 kb 01/27 18:05 Order name: Lipase; Complete Time: 00:14 kb 01/27 18:05 Order name: Urinalysis w/ reflexes; Complete Time: 18:40 kb 01/27 18:39 Order name: Urine Culture EDMS 01/27 23:41 Order name: D-Dimer EDMS 01/27 23:56 Order name: Creatine Phosphokinase; Complete Time: 00:14 EDMS 01/28 00:00 Order name: Urinalysis w/ reflexes EDMO 01/27 18:53 Order name: CT Abd/Pelvis - IV Contrast Only; Complete Time: 20:02 kb 01/28 00:00 Order name: Physical Therapy Consult EDMO 01/27 18:05 Order name: IV Saline Lock; Complete Time: 18:21 kb 01/27 18:05 Order name: Labs collected and sent; Complete Time: 18:21 kb Administered Medications: 01/27 18:53 Drug: Cyclobenzaprine PO 10 mg PO once Route: PO; ld1 21:13 Follow up: Response: No adverse reaction jw7 21:13 Drug: Ketorolac IVP 15 mg IVP once Route: IVP; Site: right antecubital; jw7 22:32 Follow up: Response: No adverse reaction; Marked relief of symptoms jw7 21:13 Drug: NS 0.9% IV 1000 ml IV at 1000 ml once Route: IV; Rate: 1000 ml; Site: right jw7 antecubital; 01/28 00:50 Follow up: Response: No adverse reaction; IV Status: Infusion continued upon admission; jw7 IV Intake: 200ml Disposition Summary: 01/27/23 23:04 Hospitalization Ordered Notes: Hospitalization Status: Observation kb Provider: Neftali Aguirre Location: Telemetry/MedSurg (observation)(01/27/23 23:04) kb Condition: Stable(01/27/23 23:04) kb Problem: new kb Symptoms: are unchanged kb Bed/Room Type: Standard Room Assignment: 220(01/28/23 00:32) tl4 Diagnosis - Weakness kb - Cramp and spasm(01/27/23 23:04) kb Forms: - Medication Reconciliation Form kb - SBAR form kb - Leadership Thank You Letter kb Signatures: Dispatcher [employer] EDMS Lauren Carpenter FNP-C FNP-Brittonb Nancie Brewer, RN RN ld1 Barby Valdez, RN RN jw7 Zachary Echevarria tl4 Corrections: (The following items were deleted from the chart) 01/27 23:03 22:00 Home kb kb 23:03 22:00 Stable kb kb 23:03 22:00 Abdominal pain, Generalized kb kb 23:03 22:00 UTI/ Urinary tract infection, site not specified kb kb 23:03 22:00 Cramp and spasm kb kb 23:55 23:41 Creatine Phosphokinase ordered. EDMS EDMS 01/28 00:32 01/27 23:04 kb tl4
--- NOTE | 2023-01-27 23:42 | P.HP ---
Certification for Inpatient Patient admitted to: Observation With expected LOS: <2 Midnights Practitioner: I am a practitioner with admitting privileges, knowledge of patient current condition, hospital course, and medical plan of care. Services: Services provided to patient in accordance with Admission requirements found in Title 42 Section 412.3 of the Code of Federal Regulations Patient History Date of Service: 01/28/23 Reason for admission: Bilateral LE weakness / Inability to ambulate History of Present Illness: 62-year-old female with past medical history of hypertension, anxiety, came to ER with bilateral lower extremity weakness and inability to ambulate restarted 2 weeks ago and has been progressively worsening and was brought to ER. Denies any trauma. Patient states that she has episodic episodes of similar kind where she has inability to ambulate without support. Denies any falls. No fever or chills. No recent upper respiratory tract/UTI. Denies any previous history of Guillain-Martin syndrome. No sensory impairment. Denies any headache. Patient was assessed in the ER and was admitted for further management and supportive therapy Patient states that she had multiple MRIs in the past and has seen 3 neurologists in the past without much relief Allergies No Known Allergies Allergy (Unverified 04/03/15 18:13) Home medications list reviewed: Yes Home Medications: ALPRAZolam [Xanax*] 0.5 mg PO BEDTIME PRN 04/02/15 Chlordiazepoxide HCl 10 mg PO DAILY 04/02/15 Citalopram Hydrobromide [Celexa] 20 mg PO DAILY 04/02/15 Hydrocodone Bit/Acetaminophen [Hydrocodon-Acetaminoph 7.5-325] 1 each PO [id number] PRN 04/02/15 Lisinopril/Hydrochlorothiazide [Zestoretic 10-12.5 mg Tablet] 1 each PO DAILY 04/02/15 Omeprazole [Prilosec] 40 mg PO DAILY 04/02/15 Promethazine HCl [Phenergan] 25 mg RC BID PRN #30 supp.rect 04/03/15 Promethazine Tab [Phenergan] 25 mg PO Q6HP PRN #30 tab 04/03/15 - Past Medical/Surgical History Diabetic: No Past Medical History: Reviewed- Non-Contributory -: HTN -: Anxiety Past Surgical History: Reviewed- Non-Contributory -: x3 - Family History Family History: Reviewed- Non-Contributory - Family History Father -: Heart disease Mother Notes: Parkinson's. TMJ Sister Notes: Thyroid - Social History Smoking Status: Never smoker Alcohol use: Yes CD- Drugs: No Caffeine use: Yes Review of Systems 10-point ROS is otherwise unremarkable General: Weakness, Malaise Eyes: Unremarkable ENT: Unremarkable Respiratory: Unremarkable Cardiovascular: Unremarkable Gastrointestinal: Unremarkable Genitourinary: Unremarkable Musculoskeletal: Unremarkable Integumentary: Unremarkable Neurological: Weakness, Incoordination Physical Examination - Vital Signs Temperature: 98.6 F Blood Pressure: 138/74 Pulse: 78 Respirations: 18 Pulse Ox (%): 97 - Physical Exam General: Alert, Oriented x3, Mild distress HEENT: Atraumatic, Normocephalic Neck: Supple, No Thyromegaly Respiratory: Clear to auscultation bilaterally, Normal air movement Cardiovascular: No edema, Regular rate/rhythm, Normal S1 S2 Capillary refill: <2 Seconds Gastrointestinal: Soft and benign, W/out hepatosplenomegaly, No guarding Musculoskeletal: No clubbing, Tenderness Integumentary: No rashes, No breakdown Neurological: Normal speech, Sensation intact, Cranial nerves 3-12 intact, Other (Anxious ), Abnormal gait, Abnormal strength, Abnormal tone Lymphatics: No axilla or inguinal lymphadenopathy - Studies Laboratory Data (last 24 hrs) 01/27/23 01/27/23 18:18 18:18 WBC 8.20 Hgb 13.0 Hct 39.5 Plt Count 266 Sodium 142 Potassium 4.1 BUN 13 Creatinine 0.81 Glucose 111 H Total Bilirubin 0.6 AST 13 L ALT 16 Alkaline Phosphatase 83 Lipase 11 L Assessment and Plan - Problems (Diagnosis) (1) Bilateral leg weakness Current Visit: Yes Status: Acute Plan: States the patient has episodic bilateral lower extremity weakness Has seen neurologist in the past Had MRIs in the past as well Will get a CK level Pain controlled (2) Inability to ambulate due to multiple joints Current Visit: Yes Status: Acute Plan: Pain control PT OT evaluation Monitor closely (3) Anxiety Current Visit: Yes Status: Chronic Plan: Continue home medications and titrate as needed (4) Hypertension Current Visit: Yes Status: Chronic Plan: Continue home medications titrate as needed. Discharge Plan: Home Plan to discharge in: 24 Hours - Advance Directives Does patient have a Living Will: No Does patient have a Durable POA for Healthcare: No - Code Status/Comfort Care Code Status: Full Code Time Spent Managing Pts Care (In Minutes): 48
[2023-01-28] MEDS ORDERED: ALPRAZOLAM 0.5 MG TABLET PO PRN (00:13)
[2023-01-28] MEDS: NA CHLORIDE 0.9% 1,000 ML IV SCH ×2 (02:10→11:10)
[2023-01-28] MEDS: ACETAMINOPHEN 500 MG TAB PO PRN ×2 (02:18→21:44)
[2023-01-28 03:20] VITALS: BMI 25.7
[2023-01-28] MEDS: PANTOPRAZOLE 40MG TABLET PO SCH (06:05)
[2023-01-28 08:42] LABS: Potassium 3.7 mEq/L (3.5-5.1)
[2023-01-28 08:43] LABS: Albumin 2.6 g/dL (3.4-5.0); Bilirubin Total 0.7 mg/dL (0.2-1.0); Phosphorus 4.1 mg/dL (2.5-4.9); Protein, Total 5.5 g/dL (6.4-8.2)
[2023-01-28] MEDS ORDERED: CHLORDIAZEPOXIDE HCL 10 MG PO SCH (09:00)
[2023-01-28] MEDS ORDERED: HYDROCHLOROTHIAZIDE PO SCH (09:00)
[2023-01-28] MEDS ORDERED: LISINOPRIL PO SCH (09:00)
[2023-01-28] MEDS ORDERED: [UNRECOGNIZED DRUG - OTHER] PO SCH (09:00)
[2023-01-28] MEDS: CITALOPRAM 10 MG TABLET PO SCH (09:12)
[2023-01-28] MEDS: ENOXAPARIN 40 MG/0.4 ML SQ SCH (09:12)
--- NOTE | 2023-01-28 10:25 | P.PN ---
Date of Service: 01/28/23 Subjective: No acute events overnight Reports continued lower extremity pain/cramping/weakness ROS: 10 point ROS as noted above, otherwise negative Physical exam GEN: Alert, oriented, NAD HEENT: Normal conjunctiva, sclera anicteric CV: Regular rate and rhythm, no edema Pulm: Nonlabored respirations on room air ABD: Soft, nontender, nondistended MSK: No joint tenderness Integumentary: No rashes Neuro: Normal speech, normal affect, strength 5/5 in all extremities Vitals reviewed Problem List Debility, bilateral lower extremity weakness/cramps UTI Hypertension Anxiety Plan Debility, bilateral lower extremity weakness/cramps Reports ongoing issues with leg cramping, pain, weakness for the last 2 years Follows with neurology, has had MRIs in the past without diagnosis Currently doing outpatient physical therapy Reports worsening in symptoms last 2 weeks, unable to stand or walk since last night PT evaluation, continuation of home medications UTI be contributing to worsening symptoms, also feeling off balance UTI Reports urinary symptoms the past 5 days, was taking Azo's at home Medrano catheter discontinued Follow urine culture Empiric antibiotics Hypertension Anxiety Continue home medications VTE: Lovenox Code: Full Dispo: 24 to 48 hours Time Spent Managing Pts Care (In Minutes): 35
[2023-01-28] MEDS ORDERED: MELATONIN 10 MG PO PRN (11:26)
[2023-01-28] MEDS ORDERED: MELATONIN 5 MG TABLET PO PRN (11:35)
[2023-01-28] MEDS: ALPRAZOLAM 0.5 MG TABLET PO PRN (12:16)
[2023-01-28] MEDS: DESVENLAFAXINE SUCCINATE 50 MG ER TAB PO SCH (12:23)
[2023-01-28] MEDS: GABAPENTIN 100 MG CAP PO SCH ×2 (12:23→21:44)
[2023-01-28] MEDS: CEFTRIAXONE 1,000 MG in NA CHLORIDE 0.9% 50 ML IVPB SCH (12:23)
[2023-01-28] MEDS: PROPRANOLOL HCL 60 MG SA CAP PO SCH (12:23)
[2023-01-28] MEDS: HYDROCODONE/APAP 7.5/325 MG TAB PO PRN (16:03)
[2023-01-28] MEDS: ONDANSETRON 4 MG/2 ML VIAL IV PRN (16:13)
[2023-01-28] MEDS: QUETIAPINE 100MG TAB PO SCH (21:44)
[2023-01-29] MEDS: ALPRAZOLAM 0.5 MG TABLET PO PRN ×2 (01:20→22:43)
[2023-01-29] MEDS: ZOLPIDEM TARTRATE 10 MG TABLET PO PRN ×2 (01:20→22:46)
[2023-01-29] MEDS: ONDANSETRON 4 MG/2 ML VIAL IV PRN (01:20)
[2023-01-29] MEDS: NA CHLORIDE 0.9% 1,000 ML IV SCH ×3 (01:23→17:29)
[2023-01-29 03:03] LABS: Magnesium 1.7 mg/dL (1.6-2.4); Phosphorus 3.6 mg/dL (2.5-4.9); Potassium 3.7 mEq/L (3.5-5.1)
[2023-01-29] MEDS: PANTOPRAZOLE 40MG TABLET PO SCH (05:40)
[2023-01-29] MEDS ORDERED: MAGNESIUM SULFATE 1 gm IVPB 1 GM/100 ML BAG IV ONE (06:30)
--- NOTE | 2023-01-29 08:56 | P.PN ---
Date of Service: 01/29/23 Subjective: No acute events overnight Reports continued lower extremity pain/cramping/weakness Unable to stand with PT even with walker yesterday due to weakness ROS: 10 point ROS as noted above, otherwise negative Physical exam GEN: Alert, oriented, NAD HEENT: Normal conjunctiva, sclera anicteric CV: Regular rate and rhythm, no edema Pulm: Nonlabored respirations on room air ABD: Soft, nontender, nondistended MSK: No joint tenderness Integumentary: No rashes Neuro: Normal speech, normal affect, strength 5/5 in all extremities Vitals reviewed Problem List Debility, bilateral lower extremity weakness/cramps UTI Hypertension Anxiety Plan Debility, bilateral lower extremity weakness/cramps Reports ongoing issues with leg cramping, pain, weakness for the last 2 years Follows with neurology, has had MRIs in the past without diagnosis Currently doing outpatient physical therapy Reports worsening in symptoms last 2 weeks, unable to stand or walk since last night PT evaluation, continuation of home medications UTI be contributing to worsening symptoms, also feeling off balance Continue IV ABX Eval arterial flow to lower extremities, discuss further with neurology UTI Reports urinary symptoms the past 5 days, was taking Azo's at home Medrano catheter discontinued Follow urine culture Empiric antibiotics Hypertension Anxiety home meds continued VTE: Lovenox Code: Full Dispo: 24 to 48 hours Time Spent Managing Pts Care (In Minutes): 35
--- NOTE | 2023-01-29 08:59 | RAD REPORT ---
EXAM DESCRIPTION: US - Lower Extremity Arterial Bilat - 01/29/2023 8:47 am CLINICAL HISTORY: Leg pain. Leg weakness COMPARISON: None FINDINGS: Right common femoral, superficial femoral and popliteal arteries demonstrate triphasic waveforms The right posterior tibial artery demonstrates biphasic wave form. Right dorsalis pedis artery waveform monophasic and diminished in amplitude The left common femoral, superficial femoral and popliteal arteries demonstrate triphasic waveforms The left posterior tibial and dorsalis pedis arteries demonstrate biphasic waveforms Grayscale, color and spectral analysis performed on all vessels IMPRESSION: Mild to moderate arterial disease involving the distal right lower extremity Mild arterial disease involving the distal left lower extremity
[2023-01-29] MEDS ORDERED: POTASSIUM CL SA 10 MEQ TAB PO ONE (09:00)
[2023-01-29] MEDS ORDERED: PROPRANOLOL HCL 120 MG PO SCH (09:00)
[2023-01-29] MEDS ORDERED: DESVENLAFAXINE 100 MG PO SCH (09:00)
[2023-01-29] MEDS: CITALOPRAM 10 MG TABLET PO SCH (10:16)
[2023-01-29] MEDS: GABAPENTIN 100 MG CAP PO SCH ×2 (10:16→20:40)
[2023-01-29] MEDS: ENOXAPARIN 40 MG/0.4 ML SQ SCH (10:17)
[2023-01-29] MEDS: CEFTRIAXONE 1,000 MG in NA CHLORIDE 0.9% 50 ML IVPB SCH (10:18)
[2023-01-29] MEDS: HYDROCODONE/APAP 7.5/325 MG TAB PO PRN ×2 (10:31→20:40)
[2023-01-29] MEDS: DESVENLAFAXINE SUCCINATE 50 MG ER TAB PO SCH (11:20)
[2023-01-29] MEDS: PROPRANOLOL HCL 60 MG SA CAP PO SCH (11:20)
--- NOTE | 2023-01-29 15:59 | RAD REPORT ---
EXAM DESCRIPTION: MRI - Brain Wo Cont - 01/29/2023 2:20 pm CLINICAL HISTORY: Lower extremity weakness/spacticity COMPARISON: Head CT 10/10/2021 TECHNIQUE: Multiplanar multisequence MRI of the brain performed without IV contrast. FINDINGS: No evidence of acute infarct or other diffusion signal abnormality. No evidence of acute intracranial hemorrhage or abnormal extra-axial fluid collections. Mild diffuse parenchymal volume loss. Ventricular caliber otherwise within normal for age. Midline st ructures are unremarkable. No significant white matter signal abnormalities. No mass effect or midline shift. Major vascular flow voids are preserved. Mastoid air cells are well aerated. Scattered mild inflammatory mucosal thickening in the paranasal s inuses most pronounced in the left sphenoid sinus. IMPRESSION: No acute intracranial process. No evidence of ventriculomegaly or mass effect. Mild inflammatory paranasal sinus mucosal thickening, most pronounced in the left sphenoid sinus.
--- NOTE | 2023-01-29 16:29 | RAD REPORT ---
EXAM DESCRIPTION: MRI - C Spine Wo Cont - 01/29/2023 1:53 pm CLINICAL HISTORY: Lower extremity weakness/spasticity COMPARISON: None. TECHNIQUE: Multiplanar multisequence MRI of the cervical spine, obtained without IV contrast. FINDINGS: Cervical vertebral bodies are normal in height and alignment. No suspicious marrow edema o r marrow replacing process. Cerebellar tonsils and mid-line skull base show no suspicious finding. No significant finding at the C1 and C2 levels. C2-3 level: Bilateral facet and uncovertebral joint arthropathy worse on the left. Mild neural forami nal narrowing. Central canal is patent. C3-4 level: Facet and uncovertebral joint arthropathy worse on the left. Left severe and right mild t o moderate neural foraminal narrowing. Central canal is patent. C4-5 level: Mild posterior disc bulge. Left worse than right uncovertebral joint and facet arthropath y. Severe left and mild right neural foraminal narrowing. Central canal is patent. C5-6 level: Small central disc extrusion. Left moderate and right mild neural foraminal narrowing sec ondary to uncovertebral joint and facet arthropathy. Mild central canal stenosis. C6-7 level: Broad-based disc bulge. Left worse than right uncovertebral joint and facet arthropathy, with ligamentum flavum buckling. Mild central canal stenosis. Bilateral [id number] neural radha inal narrowing. C7-T1 level: Bilateral facet and uncovertebral joint arthropathy. Left moderate and right mild neural foraminal narrowing. Central canal is patent. Cervical cord shows no focal narrowing, expansion or signal abnormality. IMPRESSION: Multilevel spondylotic changes contribute to mild central canal stenosis at C5-6 and C6- 7 levels. Variable degrees of neural foraminal narrowing, worse at C3-4 and C4-5 on the left. No cord signal abnormality.
[2023-01-29] MEDS: QUETIAPINE 100MG TAB PO SCH (20:41)
[2023-01-30] MEDS: NA CHLORIDE 0.9% 1,000 ML IV SCH ×4 (01:45→21:00)
[2023-01-30] MEDS: PANTOPRAZOLE 40MG TABLET PO SCH (05:35)
[2023-01-30 06:53] LABS: Magnesium 1.8 mg/dL (1.6-2.4); Phosphorus 2.9 mg/dL (2.5-4.9); Potassium 3.9 mEq/L (3.5-5.1)
[2023-01-30 07:44] LABS: Absolute Lymphocytes (CBC) 2.2 K/uL (0.7-4.9); Hematocrit 31.7 % (36.0-45.0); Lymphocytes % 40.1 % (15.3-44.8); MCV 90.6 fL (80-100); MPV 10.4 fL (7.6-11.3); Platelets 199 thou/uL (152-406)
[2023-01-30 08:09] LABS: Thyroid Stimulating Hormone 2.19 uIU/mL (0.358-3.740)
[2023-01-30] MEDS ORDERED: POTASSIUM CL SA 10 MEQ TAB PO ONE (09:00)
[2023-01-30] MEDS ORDERED: MAGNESIUM SULFATE 1 gm IVPB 1 GM/100 ML BAG IV ONE (09:00)
[2023-01-30] MEDS: ENOXAPARIN 40 MG/0.4 ML SQ SCH (09:07)
[2023-01-30] MEDS: CEFTRIAXONE 1,000 MG in NA CHLORIDE 0.9% 50 ML IVPB SCH (09:07)
[2023-01-30] MEDS: CITALOPRAM 10 MG TABLET PO SCH (09:08)
[2023-01-30] MEDS: GABAPENTIN 100 MG CAP PO SCH ×2 (09:08→21:00)
[2023-01-30] MEDS: DESVENLAFAXINE SUCCINATE 50 MG ER TAB PO SCH (09:42)
[2023-01-30] MEDS: PROPRANOLOL HCL 60 MG SA CAP PO SCH (09:44)
[2023-01-30] MEDS: HYDROCODONE/APAP 7.5/325 MG TAB PO PRN ×3 (11:55→22:21)
[2023-01-30] MEDS: ALPRAZOLAM 0.5 MG TABLET PO PRN (15:54)
--- NOTE | 2023-01-30 18:28 | P.PN ---
Date of Service: 01/30/23 Subjective: Awake eating alfredo bar candy, c/o the taste of the food c/o leg weakness and cramping, participated with PT and able to stand for a short time. She was too weak to take steps ROS: 10 point ROS as noted above, otherwise negative Physical exam GEN: Alert, oriented, NAD HEENT: Normal conjunctiva, sclera anicteric CV: Regular rate and rhythm, no edema Pulm: Nonlabored respirations on room air ABD: Soft, nontender, nondistended MSK: No joint tenderness Integumentary: No rashes Neuro: Normal speech, normal affect, strength 5/5 in all extremities Vitals reviewed Problem List Debility, bilateral lower extremity weakness/cramps UTI Hypertension Anxiety Plan Debility, bilateral lower extremity weakness/cramps Reports ongoing issues with leg cramping, pain, weakness for the last 2 years Follows with neurology, has had MRIs in the past without diagnosis Currently doing outpatient physical therapy Reports worsening in symptoms last 2 weeks, unable to stand or walk since last night PT evaluation, continuation of home medications UTI be contributing to worsening symptoms, also feeling off balance Continue IV ABX Eval arterial flow to lower extremities, discuss further with neurology Carotid US pending Dr. Molina consulted UTI Reports urinary symptoms the past 5 days, was taking Azo's at home Medrano catheter discontinued Follow urine culture Empiric antibiotics Hypertension Anxiety home meds continued VTE: Lovenox Code: Full Dispo: 24 to 48 hours Time Spent Managing Pts Care (In Minutes): 35
[2023-01-30] MEDS: QUETIAPINE 100MG TAB PO SCH (21:00)
--- NOTE | 2023-01-30 22:44 | RAD REPORT ---
EXAM DESCRIPTION: US - CP - 01/30/2023 9:26 pm CLINICAL HISTORY: weakness COMPARISON: No comparisons TECHNIQUE: Real-time sonographic grayscale, color duplex, and spectral wave Doppler evaluation of [facility] carotid systems was performed. FINDINGS: Normal high resistance waveforms are noted in both external carotid arteries. The common c arotid arteries and internal carotid arteries show normal low resistance waveforms. No significant plaque formation is seen. Peak systolic velocity less than 125 cm/ sec bilaterally. I CA/CCA peak systolic ratios less than 2.0 bilaterally. Antegrade flow seen in both vertebral arteries. IMPRESSION: No significant atherosclerotic changes noted. No evidence of a hemodynamically significant stenosis. Evaluation of carotid artery stenosis, if any, is reported based on consensus recommendations of the Society of Radiologists in Ultrasound (Ayan et al., Radiology, 2003)
[2023-01-31] MEDS: ZOLPIDEM TARTRATE 10 MG TABLET PO PRN (02:07)
[2023-01-31] MEDS: PANTOPRAZOLE 40MG TABLET PO SCH (05:30)
[2023-01-31 07:10] LABS: Magnesium 1.9 mg/dL (1.6-2.4); Phosphorus 3.8 mg/dL (2.5-4.9); Potassium 4.1 mEq/L (3.5-5.1)
[2023-01-31] MEDS: CITALOPRAM 10 MG TABLET PO SCH (07:31)
[2023-01-31] MEDS: CEFTRIAXONE 1,000 MG in NA CHLORIDE 0.9% 50 ML IVPB SCH (07:31)
[2023-01-31] MEDS: HYDROCODONE/APAP 7.5/325 MG TAB PO PRN ×3 (07:31→18:57)
[2023-01-31] MEDS: ENOXAPARIN 40 MG/0.4 ML SQ SCH (07:31)
[2023-01-31] MEDS: GABAPENTIN 100 MG CAP PO SCH ×2 (07:31→20:30)
[2023-01-31] MEDS: DESVENLAFAXINE SUCCINATE 50 MG ER TAB PO SCH (07:32)
[2023-01-31] MEDS: PROPRANOLOL HCL 60 MG SA CAP PO SCH (07:33)
[2023-01-31] MEDS: NA CHLORIDE 0.9% 1,000 ML IV SCH ×4 (07:45→23:53)
--- NOTE | 2023-01-31 11:38 | P.PN ---
Date of Service: 01/31/23 Subjective: Sleeping well, Zachary has the strength to position her legs bent in the bed while sleeping and without tremors. She is working with therapy and able to stand daily. Awaiting inpatient rehab facility. ROS: 10 point ROS as noted above, otherwise negative Physical exam GEN: Alert, oriented, NAD HEENT: Normal conjunctiva, sclera anicteric CV: Regular rate and rhythm, no edema Pulm: Nonlabored respirations on room air ABD: Soft, nontender, nondistended MSK: No joint tenderness Integumentary: No rashes Neuro: Normal speech, normal affect, strength 5/5 in all extremities Vitals reviewed Problem List Debility, bilateral lower extremity weakness/cramps UTI Hypertension Anxiety Plan Debility, bilateral lower extremity weakness/cramps Reports ongoing issues with leg cramping, pain, weakness for the last 2 years Follows with neurology, has had MRIs in the past without diagnosis Currently doing outpatient physical therapy Reports worsening in symptoms last 2 weeks, unable to stand or walk since last night PT evaluation, continuation of home medications UTI be contributing to worsening symptoms, also feeling off balance Continue IV ABX Eval arterial flow to lower extremities, discuss further with neurology Carotid US pending Dr. Molina consulted UTI Reports urinary symptoms the past 5 days, was taking Azo's at home Medrano catheter discontinued urine culture with mixed julito Empiric antibiotics Hypertension Anxiety home meds continued VTE: Lovenox Code: Full Dispo: 24 to 48 hours- pending inpatient rehab Time Spent Managing Pts Care (In Minutes): 35
[2023-01-31] MEDS: ALPRAZOLAM 0.5 MG TABLET PO PRN (13:04)
[2023-01-31] MEDS: POLYETHYL GLY 3350 17 GM/DOSE PO PRN (13:04)
[2023-01-31] MEDS: QUETIAPINE 100MG TAB PO SCH (20:30)
[2023-01-31] MEDS: DOCUSATE NA/SENNA CONC 1 TAB PO PRN (20:31)
[2023-02-01] MEDS: ZOLPIDEM TARTRATE 10 MG TABLET PO PRN (00:33)
[2023-02-01] MEDS: HYDROCODONE/APAP 7.5/325 MG TAB PO PRN ×3 (04:37→20:12)
[2023-02-01] MEDS: PANTOPRAZOLE 40MG TABLET PO SCH (04:37)
[2023-02-01] MEDS: ALPRAZOLAM 0.5 MG TABLET PO PRN ×2 (04:40→14:33)
[2023-02-01] MEDS: ENOXAPARIN 40 MG/0.4 ML SQ SCH (07:57)
[2023-02-01] MEDS: CEFTRIAXONE 1,000 MG in NA CHLORIDE 0.9% 50 ML IVPB SCH (07:57)
[2023-02-01] MEDS: PROPRANOLOL HCL 60 MG SA CAP PO SCH (07:58)
[2023-02-01] MEDS: DESVENLAFAXINE SUCCINATE 50 MG ER TAB PO SCH (07:59)
[2023-02-01] MEDS: GABAPENTIN 100 MG CAP PO SCH ×2 (07:59→20:12)
[2023-02-01] MEDS: CITALOPRAM 10 MG TABLET PO SCH (07:59)
[2023-02-01] MEDS: POLYETHYL GLY 3350 17 GM/DOSE PO PRN (08:10)
--- NOTE | 2023-02-01 09:39 | P.PN ---
Date of Service: 02/01/23 Subjective: Awake and c/o not having a BM for seven days, started miralax and pericolace yesterday and will give lactulose today. Awaiting inpatient rehab facility. ROS: 10 point ROS as noted above, otherwise negative Physical exam GEN: Alert, oriented, NAD HEENT: Normal conjunctiva, sclera anicteric CV: Regular rate and rhythm, no edema Pulm: Nonlabored respirations on room air ABD: Soft, nontender, nondistended MSK: No joint tenderness Integumentary: No rashes Neuro: Normal speech, normal affect, strength 5/5 in all extremities Vitals reviewed Problem List Debility, bilateral lower extremity weakness/cramps UTI Hypertension Anxiety Plan Debility, bilateral lower extremity weakness/cramps Reports ongoing issues with leg cramping, pain, weakness for the last 2 years Follows with neurology, has had MRIs in the past without diagnosis Currently doing outpatient physical therapy Reports worsening in symptoms last 2 weeks, unable to stand or walk since last night PT evaluation, continuation of home medications UTI be contributing to worsening symptoms, also feeling off balance Continue IV ABX Eval arterial flow to lower extremities, discuss further with neurology Carotid US pending Dr. Molina consulted UTI Reports urinary symptoms the past 5 days, was taking Azo's at home Medrano catheter discontinued urine culture with mixed julito Empiric antibiotics- Rocephin Constipation Pericolace and miralax lactulose x1 today Will need to ambulate once stable for bowel movement Hypertension Anxiety home meds continued VTE: Lovenox Code: Full Dispo: 24 to 48 hours- pending inpatient rehab Time Spent Managing Pts Care (In Minutes): 35
[2023-02-01] MEDS ORDERED: LACTULOSE 20 GM/30 ML UCUP PO ONE (10:00)
[2023-02-01] MEDS: NA CHLORIDE 0.9% 1,000 ML IV SCH ×2 (13:39→23:45)
[2023-02-01 14:26] LABS: Urine Bacteria None Seen /HPF (<20); Urine Crystals Unidentified Few /HPF (None Seen); Urine RBC <5 /HPF (None Seen)
[2023-02-01 14:46] LABS: Urine Bilirubin Negative (Negative); Urine Blood Negative (Negative); Urine Clarity Clear (Clear); Urine Color Yellow (Yellow); Urine Glucose Negative (Negative); Urine Protein Negative (Negative); Urine Urobilinogen Normal (Normal)
[2023-02-01] MEDS ORDERED: FLEET ENEMA ADULT PR ONE (15:30)
[2023-02-01] MEDS: ONDANSETRON 4 MG/2 ML VIAL IV PRN (18:18)
[2023-02-01] MEDS: QUETIAPINE 100MG TAB PO SCH (20:12)
[2023-02-02] MEDS: ZOLPIDEM TARTRATE 10 MG TABLET PO PRN (00:39)
[2023-02-02] MEDS: PANTOPRAZOLE 40MG TABLET PO SCH (06:40)
[2023-02-02] MEDS: GABAPENTIN 100 MG CAP PO SCH ×2 (08:39→20:29)
[2023-02-02] MEDS: DESVENLAFAXINE SUCCINATE 50 MG ER TAB PO SCH (08:39)
[2023-02-02] MEDS: PROPRANOLOL HCL 60 MG SA CAP PO SCH (08:39)
[2023-02-02] MEDS: HYDROCODONE/APAP 7.5/325 MG TAB PO PRN ×3 (08:40→18:05)
[2023-02-02] MEDS: ENOXAPARIN 40 MG/0.4 ML SQ SCH (08:40)
[2023-02-02] MEDS: CITALOPRAM 10 MG TABLET PO SCH (08:41)
[2023-02-02] MEDS: CEFTRIAXONE 1,000 MG in NA CHLORIDE 0.9% 50 ML IVPB SCH (08:41)
[2023-02-02] MEDS: NA CHLORIDE 0.9% 1,000 ML IV SCH (09:45)
[2023-02-02] MEDS: ALPRAZOLAM 0.5 MG TABLET PO PRN ×2 (10:21→18:07)
--- NOTE | 2023-02-02 12:52 | P.PN ---
Date of Service: 02/02/23 Subjective: Awake, more comfortable after having a few bowel movements. Still with c/o dysuria. Medrano was discontinued, Mixed julito in the unire culture, finished rocephin, will try pyridium. Awaiting inpatient rehab facility. ROS: 10 point ROS as noted above, otherwise negative Physical exam GEN: Alert, oriented, NAD HEENT: Normal conjunctiva, sclera anicteric CV: Regular rate and rhythm, no edema Pulm: Nonlabored respirations on room air ABD: Soft, nontender, nondistended MSK: No joint tenderness Integumentary: No rashes Neuro: Normal speech, normal affect, strength 5/5 in all extremities Vitals reviewed Problem List Debility, bilateral lower extremity weakness/cramps UTI Hypertension Anxiety Plan Debility, bilateral lower extremity weakness/cramps Reports ongoing issues with leg cramping, pain, weakness for the last 2 years Follows with neurology, has had MRIs in the past without diagnosis Currently doing outpatient physical therapy Reports worsening in symptoms last 2 weeks, unable to stand or walk since last night PT evaluation, continuation of home medications UTI be contributing to worsening symptoms, also feeling off balance Continue IV ABX Eval arterial flow to lower extremities, discuss further with neurology Carotid US pending Dr. Molina consulted UTI Dysuria Reports urinary symptoms the past 5 days, was taking Azo's at home Medrano catheter discontinued urine culture with mixed julito Empiric antibiotics- Rocephin- stopped Pyridium for three days, to end 02/04 Constipation Pericolace and miralax lactulose x1 today Will need to ambulate once stable for bowel movement Hypertension Anxiety home meds continued VTE: Lovenox Code: Full Dispo: 24 to 48 hours- pending inpatient rehab Time Spent Managing Pts Care (In Minutes): 35
[2023-02-02] MEDS: PHENAZOPYRIDINE 100MG TAB PO SCH ×2 (17:06→20:29)
[2023-02-02] MEDS: QUETIAPINE 100MG TAB PO SCH (20:29)
[2023-02-03] MEDS: ZOLPIDEM TARTRATE 10 MG TABLET PO PRN (00:49)
[2023-02-03] MEDS: PANTOPRAZOLE 40MG TABLET PO SCH (05:29)
[2023-02-03] MEDS: ENOXAPARIN 40 MG/0.4 ML SQ SCH (08:24)
[2023-02-03] MEDS: DESVENLAFAXINE SUCCINATE 50 MG ER TAB PO SCH (08:25)
[2023-02-03] MEDS: PROPRANOLOL HCL 60 MG SA CAP PO SCH (08:25)
[2023-02-03] MEDS: CITALOPRAM 10 MG TABLET PO SCH (08:25)
[2023-02-03] MEDS: GABAPENTIN 100 MG CAP PO SCH ×2 (08:26→20:20)
[2023-02-03] MEDS: PHENAZOPYRIDINE 100MG TAB PO SCH ×3 (08:26→20:20)
[2023-02-03] MEDS: ALPRAZOLAM 0.5 MG TABLET PO PRN ×2 (08:31→17:13)
[2023-02-03] MEDS: HYDROCODONE/APAP 7.5/325 MG TAB PO SCH ×2 (11:06→16:05)
--- NOTE | 2023-02-03 16:36 | P.PN ---
Date of Service: 02/03/23 Subjective: Calm and cooperative, still with urinary symptoms Dr. Molina recommends anticholinergetic to help with the urinary symptoms Awaiting inpatient rehab facility. ROS: 10 point ROS as noted above, otherwise negative Physical exam GEN: Alert, oriented, NAD HEENT: Normal conjunctiva, sclera anicteric CV: Regular rate and rhythm, no edema Pulm: Nonlabored respirations on room air ABD: Soft, nontender, nondistended MSK: No joint tenderness Integumentary: No rashes Neuro: Normal speech, normal affect, strength 5/5 in all extremities Vitals reviewed Problem List Debility, bilateral lower extremity weakness/cramps UTI Hypertension Anxiety Plan Debility, bilateral lower extremity weakness/cramps Reports ongoing issues with leg cramping, pain, weakness for the last 2 years Follows with neurology, has had MRIs in the past without diagnosis Currently doing outpatient physical therapy Reports worsening in symptoms last 2 weeks, unable to stand or walk since last night PT evaluation, continuation of home medications UTI be contributing to worsening symptoms, also feeling off balance Continue IV ABX Eval arterial flow to lower extremities, discuss further with neurology Carotid US pending Dr. Molina consulted UTI Dysuria Reports urinary symptoms the past 5 days, was taking Azo's at home Medrano catheter discontinued urine culture with mixed julito Empiric antibiotics- Rocephin- stopped Pyridium for three days, to end 02/04 Constipation Pericolace and miralax lactulose x1 today Will need to ambulate once stable for bowel movement Hypertension Anxiety home meds continued VTE: Lovenox Code: Full Dispo: 24 to 48 hours- pending inpatient rehab Time Spent Managing Pts Care (In Minutes): 35 <Jessica Rowan - Last Filed: 02/03/23 16:28> Patient seen and examined with Harpal. Noted to have tremor most mostly with standing. Case discussed with neurology Dr. Molina suspect intention tremor. Patient has been on Seroquel for mood disorders. Also noted she is on significant dose of propranolol which patient stated was started about a year ago for her tremors. Patient with progressive worsening tremors affecting her mobility. Continue PT. She is slated for acute rehab placement. <tai goodson - Last Filed: 02/07/23 15:24>
[2023-02-03] MEDS: QUETIAPINE 100MG TAB PO SCH (20:20)
[2023-02-04] MEDS: HYDROCODONE/APAP 7.5/325 MG TAB PO SCH ×3 (01:23→16:13)
[2023-02-04] MEDS: ZOLPIDEM TARTRATE 10 MG TABLET PO PRN (01:23)
[2023-02-04] MEDS: PANTOPRAZOLE 40MG TABLET PO SCH (06:39)
[2023-02-04] MEDS: CITALOPRAM 10 MG TABLET PO SCH (08:04)
[2023-02-04] MEDS: PROPRANOLOL HCL 60 MG SA CAP PO SCH (08:04)
[2023-02-04] MEDS: ENOXAPARIN 40 MG/0.4 ML SQ SCH (08:04)
[2023-02-04] MEDS: DESVENLAFAXINE SUCCINATE 50 MG ER TAB PO SCH (08:05)
[2023-02-04] MEDS: PHENAZOPYRIDINE 100MG TAB PO SCH ×2 (08:05→14:05)
[2023-02-04] MEDS: GABAPENTIN 100 MG CAP PO SCH ×2 (08:06→20:46)
[2023-02-04] MEDS: POLYETHYL GLY 3350 17 GM/DOSE PO PRN (11:57)
[2023-02-04] MEDS: ALPRAZOLAM 0.5 MG TABLET PO PRN ×2 (14:05→20:51)
--- NOTE | 2023-02-04 18:16 | P.PN ---
Date of Service: 02/04/23 Subjective: awake, reports still with bladder cramping and burning, able to move legs freely in bed and against resistance but weak and with tremors when standing. Awaiting inpatient rehab facility. ROS: 10 point ROS as noted above, otherwise negative Physical exam GEN: Alert, oriented, NAD HEENT: Normal conjunctiva, sclera anicteric CV: Regular rate and rhythm, no edema Pulm: Nonlabored respirations on room air ABD: Soft, nontender, nondistended MSK: No joint tenderness Integumentary: No rashes Neuro: Normal speech, normal affect, strength 5/5 in all extremities Vitals reviewed Problem List Debility, bilateral lower extremity weakness/cramps UTI Hypertension Anxiety Plan Debility, bilateral lower extremity weakness/cramps Reports ongoing issues with leg cramping, pain, weakness for the last 2 years Follows with neurology, has had MRIs in the past without diagnosis Currently doing outpatient physical therapy Reports worsening in symptoms last 2 weeks, unable to stand or walk since last night PT evaluation, continuation of home medications UTI be contributing to worsening symptoms, also feeling off balance antibiotics complete Eval arterial flow to lower extremities, discuss further with neurology Carotid US No significant atherosclerotic changes noted. No evidence of a hemodynamically significant stenosis. Dr. Molina consulted UTI Dysuria Reports urinary symptoms the past 5 days, was taking Azo's at home Medrano catheter discontinued urine culture with mixed julito Empiric antibiotics- Rocephin- complete Pyridium for three days, to end 02/04 Constipation Pericolace and miralax lactulose x1 today Will need to ambulate once stable for bowel movement Hypertension Anxiety home meds continued VTE: Lovenox Code: Full Dispo: 24 to 48 hours- pending inpatient rehab Time Spent Managing Pts Care (In Minutes): 35
[2023-02-04] MEDS: QUETIAPINE 100MG TAB PO SCH (20:46)
[2023-02-04] MEDS: ACETAMINOPHEN 500 MG TAB PO PRN (23:58)
[2023-02-05] MEDS: ZOLPIDEM TARTRATE 10 MG TABLET PO PRN (00:01)
[2023-02-05] MEDS: PANTOPRAZOLE 40MG TABLET PO SCH (05:50)
--- NOTE | 2023-02-05 07:54 | P.PN ---
Date of Service: 02/05/23 Subjective: awake, actively working with physical therapy, discouraged by weakness and trembling when standing and bearing weight on her legs. Alert and oriented x 3, tolerating p.o. diet, on room air with oxygen saturation 97% Awaiting inpatient rehab facility. ROS: 10 point ROS as noted above, otherwise negative Physical exam GEN: AAO x3, oriented, NAD HEENT: Normal conjunctiva, sclera anicteric CV: Regular rate and rhythm, no edema Pulm: Nonlabored respirations on room air, clear bilateral breath sounds ABD: Soft, nontender, nondistended MSK: No joint tenderness, weightbearing weakness Integumentary: No rashes Neuro: Normal speech, normal affect, strength 5/5 in all extremities Vitals reviewed Problem List Debility, bilateral lower extremity weakness/cramps UTI Hypertension Anxiety Plan Debility, bilateral lower extremity weakness/cramps Reports ongoing issues with leg cramping, pain, weakness for the last 2 years Follows with neurology, has had MRIs in the past without diagnosis Currently doing outpatient physical therapy Reports worsening in symptoms last 2 weeks, unable to stand or walk since last night PT evaluation, continuation of home medications UTI be contributing to worsening symptoms, also feeling off balance antibiotics complete Eval arterial flow to lower extremities, discuss further with neurology Carotid US No significant atherosclerotic changes noted. No evidence of a hemodynamically significant stenosis. Dr. Molina consulted, spoke with Dr. Molina on the phone yesterday (02/04) with no clear diagnosis, recommendations for aggressive physical therapy UTI Dysuria Reports urinary symptoms the past 5 days, was taking Azo's at home Medrano catheter discontinued urine culture with mixed julito Empiric antibiotics- Rocephin- complete Pyridium for 3 days with no relief Constipation- Resolved Pericolace and miralax daily lactulose [id number] Will need to ambulate once stable for bowel movement- when able- working with PT last BM 02/04 Hypertension Anxiety home meds continued VTE: Lovenox Code: Full Dispo: 24 to 48 hours- pending inpatient rehab Time Spent Managing Pts Care (In Minutes): 35
[2023-02-05] MEDS: CITALOPRAM 10 MG TABLET PO SCH (09:32)
[2023-02-05] MEDS: HYDROCODONE/APAP 7.5/325 MG TAB PO SCH ×3 (09:33→20:50)
[2023-02-05] MEDS: PROPRANOLOL HCL 60 MG SA CAP PO SCH (09:35)
[2023-02-05] MEDS: GABAPENTIN 100 MG CAP PO SCH ×2 (09:35→20:51)
[2023-02-05] MEDS: DESVENLAFAXINE SUCCINATE 50 MG ER TAB PO SCH (09:35)
[2023-02-05] MEDS: ENOXAPARIN 40 MG/0.4 ML SQ SCH (09:36)
[2023-02-05] MEDS: ALPRAZOLAM 0.5 MG TABLET PO PRN (16:44)
[2023-02-05] MEDS: DOCUSATE NA/SENNA CONC 1 TAB PO PRN (20:50)
[2023-02-05] MEDS: QUETIAPINE 100MG TAB PO SCH (20:50)
[2023-02-06] MEDS: ZOLPIDEM TARTRATE 10 MG TABLET PO PRN (00:09)
[2023-02-06] MEDS: PANTOPRAZOLE 40MG TABLET PO SCH (05:45)
[2023-02-06] MEDS: ALPRAZOLAM 0.5 MG TABLET PO PRN ×2 (05:48→12:31)
[2023-02-06] MEDS: ENOXAPARIN 40 MG/0.4 ML SQ SCH (09:03)
[2023-02-06] MEDS: GABAPENTIN 100 MG CAP PO SCH ×2 (09:04→21:01)
[2023-02-06] MEDS: HYDROCODONE/APAP 7.5/325 MG TAB PO SCH ×3 (09:04→17:05)
[2023-02-06] MEDS: CITALOPRAM 10 MG TABLET PO SCH (09:04)
[2023-02-06] MEDS: DESVENLAFAXINE SUCCINATE 50 MG ER TAB PO SCH (09:05)
[2023-02-06] MEDS: PROPRANOLOL HCL 60 MG SA CAP PO SCH (09:05)
[2023-02-06] MEDS: CARBIDOPA/LEVODOPA 25/100 TAB PO SCH ×2 (10:22→21:01)
[2023-02-06 10:42] VITALS: O2SAT 96
[2023-02-06 12:51] VITALS: TEMP 97.1
--- NOTE | 2023-02-06 15:04 | P.DS ---
Admission Date: 01/29/23 Discharge Date: 02/06/23 Disposition: TRANSFER TO INPATIENT REHAB Discharge Condition: FAIR Reason for Admission: Bilateral LE weakness / Inability to ambulate Brief History of Present Illness: Problem List Debility, bilateral lower extremity weakness/cramps UTI Hypertension Anxiety HPI: 62-year-old female with past medical history of hypertension, anxiety, came to ER with bilateral lower extremity weakness and inability to ambulate restarted 2 weeks ago and has been progressively worsening and was brought to ER. Denies any trauma. Patient states that she has episodic episodes of similar kind where she has inability to ambulate without support. Denies any falls. No fever or chills. No recent upper respiratory tract/UTI. Denies any previous history of Guillain-Maritn syndrome. No sensory impairment. Denies any headache. Patient was assessed in the ER and was admitted for further management and supportive therapy Patient states that she had multiple MRIs in the past and has seen 3 neurologists in the past without much relief Physical exam GEN: AAO x3, oriented, NAD HEENT: Normal conjunctiva, sclera anicteric CV: Regular rate and rhythm, no edema Pulm: Nonlabored respirations on room air, clear bilateral breath sounds ABD: Soft, nontender, nondistended MSK: No joint tenderness, weightbearing weakness Integumentary: No rashes Neuro: Normal speech, normal affect, strength 5/5 in all extremities Hospital Course: Problems with intervention Debility, bilateral lower extremity weakness/cramps Reports ongoing issues with leg cramping, pain, weakness for the last 2 years Follows with neurology, has had MRIs in the past without diagnosis Currently doing outpatient physical therapy, also participated in physical therapy during this admission Reports worsening in symptoms last 2 weeks, unable to stand or walk since last night, continues with weightbearing leg weakness Eval arterial flow to lower extremities, discuss further with neurology Carotid US No significant atherosclerotic changes noted. No evidence of a hemodynamically significant stenosis. Dr. Molina consulted, spoke with Dr. Molina on the phone yesterday (02/04) with no clear diagnosis, recommendations for aggressive physical therapy and follow-up with him in 2 to 4 weeks UTI Dysuria Reports urinary symptoms the past 5 days, was taking Azo's at home Medrano catheter discontinued urine culture with mixed julito Empiric antibiotics- Rocephin- complete Pyridium for 3 days with no relief Constipation- Resolved Pericolace and miralax daily lactulose [id number] Will need to ambulate once stable for bowel movement- when able- working with PT last BM 02/04 Hypertension Anxiety home meds continued Vital Signs/Physical Exam: Temp Pulse Resp BP Pulse Ox 97.1 F 61 18 119/60 96 02/06/23 12:00 02/06/23 12:00 02/06/23 12:30 02/06/23 12:00 02/06/23 12:30 Laboratory Data at Discharge: WBC 5.50 thou/uL (4.3-10.9) 01/30/23 05:52 Hgb 10.4 g/dL (12.0-15.0) L 01/30/23 05:52 Hct 31.7 % (36.0-45.0) L 01/30/23 05:52 Plt Count 199 thou/uL (152-406) 01/30/23 05:52 Sodium 140 mEq/L (136-145) 01/31/23 06:36 Potassium 4.1 mEq/L (3.5-5.1) 01/31/23 06:36 BUN 6 mg/dL (7-18) L 01/31/23 06:36 Creatinine 0.62 mg/dL (0.55-1.02) 01/31/23 06:36 Glucose 98 mg/dL (74-106) 01/31/23 06:36 Phosphorus 3.8 mg/dL (2.5-4.9) 01/31/23 06:36 Magnesium 1.9 mg/dL (1.6-2.4) 01/31/23 06:36 Total Bilirubin 0.7 mg/dL (0.2-1.0) 01/28/23 08:11 AST 9 U/L (15-37) L 01/28/23 08:11 ALT 13 U/L (13-56) 01/28/23 08:11 Alkaline Phosphatase 68 U/L (45-117) 01/28/23 08:11 Lipase 11 U/L (13-75) L 01/27/23 18:18 Home Medications: Citalopram Hydrobromide [Celexa] 20 mg PO DAILY 04/02/15 Hydrocodone Bit/Acetaminophen [Hydrocodon-Acetaminoph 7.5-325] 1 each PO [id number] PRN 04/02/15 Omeprazole [Prilosec] 40 mg PO DAILY 04/02/15 ALPRAZolam [Xanax*] 1 tab PO TID 01/28/23 Brexpiprazole [Rexulti] 2 mg PO DAILY 01/28/23 Desvenlafaxine [Desvenlafaxine ER] 100 mg PO DAILY 01/28/23 Desvenlafaxine [Desvenlafaxine ER] 100 mg PO DAILY 01/28/23 Gabapentin 100 mg PO BID 01/28/23 Gabapentin [Neurontin*] 100 mg PO BID 01/28/23 Melatonin 10 mg PO BEDTIME PRN 01/28/23 Propranolol HCl [Propranolol HCl ER] 120 mg PO DAILY 01/28/23 Quetiapine [Seroquel*] 0.5 tab PO DAILY 01/28/23 Quetiapine [Seroquel*] 100 mg PO BEDTIME 01/28/23 Zolpidem Tartrate 10 mg PO BEDTIME 01/28/23 Zolpidem Tartrate 10 mg PO BEDTIME PRN 01/28/23 lisinopriL [Lisinopril] 10 mg PO DAILY 01/28/23 Docusate/Senna [Senokot-S*] 2 tab PO BEDTIME PRN tab 02/06/23 Physician Discharge Instructions: 1. Please call and schedule a follow-up appointment with your PCP in 3-5 days - Please follow-up with your PCP for medication refills/adjustments 2. Please call and schedule a follow-up appointment with Dr. Molina in 2-4 weeks 3. Continue with regular diet 4. Fall risk, aggressive physical therapy will be beneficial 5. No new medications this admission Diet: Regular Activity: Fall precautions Followup: Declan Molina MD [ASSOCIATE-ACTIVE - CAN ADMIT] - 2-3 Days (call to schedule an appointment in 2-4 weeks) NONE,NONE [Primary Care Provider] - (call to schedule an appointment in 3-5 days) Time spent managing pt's care (in minutes): 55
[2023-02-06] MEDS ORDERED: CALCIUM CARBONATE CHEW 500MG TAB PO PRN (16:58)
[2023-02-06 19:47] VITALS: BP 156/67
[2023-02-06] MEDS: QUETIAPINE 100MG TAB PO SCH (21:01)
== END 2023-02-06 21:10 | DRG 690 ==
LOC: ER 17:49 → 2ND 01-28 00:32 → 4TH 01-29 14:10 → OBSVTOIN 01-29 14:44
PROVIDERS: ADMIT Family Medicine; ATTEND Internal Medicine
DX: N39.0 Urinary tract infection, site not specified (principal); I10 Essential (primary) hypertension; F39 Unspecified mood [affective] disorder; K59.00 Constipation, unspecified; G25.2 Other specified forms of tremor; F41.9 Anxiety disorder, unspecified; Z79.899 Other long term (current) drug therapy
CPT/HCPCS: 36415; 51702; 70551; 72141; 74177; 80048; 80053; 81001; 82550; 83690; 83735; 84100; 84439; 84443; 85025; 85379; 87086; 87088; 93880; 93925; 96361; 96374; 97110; 97161; 97165; 97530; 99285; G0378; J0696; J1650; J2405; J3475; J7030; Q9967

== ENCOUNTER → 2023-03-06 | Emergency (ER) | payer OTHER ==
[~2023-03-06] MED LIST: LORAZEPAM 1 MG TABLET ONE; NA CHLORIDE 0.9% 1,000 ML ONE; methocarbamoL 750 MG TAB ONE
[2023-03-06 17:40] LABS: Absolute Lymphocytes (CBC) 1.8 K/uL (0.7-4.9); Hematocrit 40.3 % (36.0-45.0); Lymphocytes % 30.8 % (15.3-44.8); MPV 9.5 fL (7.6-11.3); Platelets 289 thou/uL (152-406); RBC Red Blood Cell Count 4.43 M/uL (3.86-4.86)
[2023-03-06 17:43] LABS: Protime INR 1.06
[2023-03-06 17:58] LABS: Albumin 3.5 g/dL (3.4-5.0); Bilirubin Direct 0.2 mg/dL (0-0.2); Bilirubin Indirect, Calculated 0.6 mg/dL (0.2-0.8); Bilirubin Total 0.8 mg/dL (0.2-1.0); Magnesium 2.1 mg/dL (1.6-2.4); Potassium 4.4 mEq/L (3.5-5.1); Protein, Total 6.9 g/dL (6.4-8.2); Troponin High Sensitivity 3.8 pg/mL (<58.9)
--- NOTE | 2023-03-06 18:11 | RAD REPORT ---
EXAM DESCRIPTION: RAD - Chest Single View - 03/06/2023 5:48 pm CLINICAL HISTORY: CHEST PAIN Chest pain. COMPARISON: CHEST SINGLE VIEW dated 04/01/2015; ABDOMEN ACUTE SERIES dated 05/24/2008; ABDOMEN ACUTE S ERIES dated 05/07/2002 FINDINGS: Portable technique limits examination quality. The lungs are grossly clear. The heart is normal in size. No displaced fractures. IMPRESSION: No acute intrathoracic process suspected.
--- NOTE | 2023-03-06 18:29 | RAD REPORT ---
EXAM DESCRIPTION: CT - Head Brain Wo Cont - 03/06/2023 6:20 pm CLINICAL HISTORY: DIZZINESS Headache, drowsiness COMPARISON: Head Brain Wo Cont dated 10/10/2021; HEAD BRAIN W O CONTRAST dated 05/24/2008 TECHNIQUE: All CT scans are performed using dose optimization technique as appropriate and may inclu de automated exposure control or mA/KV adjustment according to patient size. FINDINGS: No intracranial hemorrhage, hydrocephalus or extra-axial fluid collection.No areas of brai n edema or evidence of midline shift. The paranasal sinuses and mastoids are clear except for sphenoid sinus opacification. The calvarium i s intact. IMPRESSION: No acute intracranial abnormality.
--- NOTE | 2023-03-06 19:21 | ER ---
Nurse's Notes [facility] Name: Zachary Paige Age: 62 yrs Sex: Female : 1960 Arrival Date: 03/06/2023 Time: 16:55 Bed 13 Private MD: Diagnosis: Cramp and spasm;Resting tremor, bilateral lower extremity cramping. Presentation: 03/06 17:01 Chief complaint: EMS states: toned out for feet/BLE cramping and tremors to mouth and me1 tongue that started today. No meds given by EMS. Coronavirus screen: Vaccine status: Patient reports being unvaccinated. Ebola Screen: No symptoms or risks identified at this time. Initial Sepsis Screen: Does the patient meet any 2 criteria? No. Patient's initial sepsis screen is negative. Does the patient have a suspected source of infection? No. Patient's initial sepsis screen is negative. Risk Assessment: Do you want to hurt yourself or someone else? Patient reports no desire to harm self or others. Onset of symptoms was March 06, 2023. 17:01 Method Of Arrival: EMS: [place] [id number] 17:01 Acuity: MADAN 3 me1 Triage Assessment: 17:03 General: Appears uncomfortable, well groomed, well developed, well nourished, Behavior me1 is calm, cooperative, appropriate for age, Reports cramping to feet/BLE and tremors to mouth and tongue that started today. Pain: Complains of pain in right leg and left leg Pain does not radiate. Pain currently is 6 out of 10 on a pain scale. Quality of pain is described as crampy, Pain began suddenly, Is intermittent. Neuro: Level of Consciousness is awake, alert, obeys commands, Oriented to person, place, time, situation, Appropriate for age Reports tremors to mouth and tongue that started today. . Cardiovascular: Capillary refill < 3 seconds Patient's skin is warm and dry. Respiratory: Airway is patent Respiratory effort is even, unlabored, Respiratory pattern is regular, symmetrical. Musculoskeletal: Reports cramping to feet/BLE that started today. Historical: - Allergies: 17:03 No Known Allergies; me1 - PMHx: 17:03 depressive disorder; Hypertension; me1 - Immunization history:: Adult Immunizations up to date. - Social history:: Smoking status: Reported history of juuling and/or vaping. Patient/guardian denies using tobacco, but has a distant history of tobacco abuse. - Family history:: not pertinent. Screenin:06 [facility] ED Fall Risk Assessment (Adult) History of falling in the last 3 months, me1 including since admission No falls in past 3 months (0 pts) Confusion or Disorientation No (0 pts) Intoxicated or Sedated No (0 pts) Impaired Gait No (0 pts) Mobility Assist Device Used No (0 pt) Altered Elimination No (0 pt) Score/Fall Risk Level 0 - 2 = Low Risk Maintained a safe environment, Provided non-skid footwear, Hourly rounding (assess needs \T\ fall precautionary measures) done. Abuse screen: Denies threats or abuse. Nutritional screening: No deficits noted. Tuberculosis screening: No symptoms or risk factors identified. Assessment: 17:06 General: See triage assessment. . me1 Vital Signs: 17:01 BP 136 / 76; Pulse 60; Resp 18; Temp 98.3(O); Pulse Ox 95% on R/A; Weight 81.65 kg; me1 Height 5 ft. 6 in. ; Pain 6/10; 17:46 BP 165 / 92; Pulse 63; Resp 18; Pulse Ox 96% on R/A; me1 18:45 BP 153 / 88; Pulse 57; Resp 11; Pulse Ox 97% on R/A; me1 19:30 BP 159 / 78; Pulse 52; Resp 11; Pulse Ox 96% on R/A; me1 17:01 Body Mass Index 29.05 (81.65 kg, 167.64 cm) me1 17:01 Pain Scale: Adult ok1 ED Course: 17:01 Patient arrived in ED. me1 17:03 Raghav Lerma MD is Attending Physician. sp4 17:03 Triage completed. me1 17:03 Arm band placed on Patient placed in an exam room. me1 17:06 Patient has correct armband on for positive identification. Placed in gown. Bed in low me1 position. Side rails up X 1. Provided Education on: POC. Verbalized understanding. . 17:06 No provider procedures requiring assistance completed. me1 17:32 Mana Urbina, KATEY is Primary Nurse. me1 17:40 Initial lab(s) drawn, by me, sent to lab. EKG done, by ED staff. Inserted saline lock: [id number] 22 gauge in left antecubital area, using aseptic technique. Blood collected. 17:50 XRAY Chest (1 view) In Process Unspecified. EDMS 18:22 CT Head Brain wo Cont In Process Unspecified. EDMS 19:19 Declan Molina MD is Referral Physician. sp4 20:32 IV discontinued, intact, bleeding controlled, No redness/swelling at site. Pressure me1 dressing applied. Administered Medications: 19:49 Discontinued: ns 0.9% 1000 ml IV at 125 ml/hr continuous rv 17:40 Drug: NS 0.9% IV 1000 ml IV at 125 ml/hr continuous Route: IV; Rate: 125 ml/hr; Site: me1 left antecubital; 19:49 Follow up: IV Status: Order to discontinue infusion; IV Intake: 300ml rv 17:42 Drug: LORazepam PO 2 mg PO once Route: PO; me1 19:49 Follow up: Response: No adverse reaction rv 19:48 Drug: Methocarbamol PO 1500 mg PO once Route: PO; rv 19:49 Follow up: Response: Medication administered at discharge. rv 20:06 Follow up: Response: No adverse reaction me1 Medication: 17:06 VIS not applicable for this client. me1 Intake: 19:49 IV: 300ml; Total: 300ml. rv Outcome: 19:20 Discharge ordered by . sp4 19:49 Discharge instructions given to patient, Instructed on discharge instructions, follow rv up and referral plans. medication usage, Demonstrated understanding of instructions, follow-up care, medications, Prescriptions given X 1, 20:06 Condition: stable me1 20:32 Discharged to home via ambulance, me1 20:33 Patient left the ED. me1 Signatures: Dispatcher [employer] EDMS Robert Batres RN RN rv Raghav Lerma MD MD sp4 Mana Urbina RN RN ok1 Willis Garcia [id number]
--- NOTE | 2023-03-06 19:21 | EDPHYS ---
Physician Documentation [facility] Name: Zachary Paige Age: 62 yrs Sex: Female : 1960 Arrival Date: 03/06/2023 Time: 16:55 Bed 13 Private MD: ED Physician Raghav Lerma HPI: 03/06 17:03 This 62 yrs old Female presents to ER via Unassigned with complaints of Gen sp4 complaint . 19:00 60-year-old female presents with acute bilateral upper and lower extremity cramping. sp4 Patient has past medical history of hypertension anxiety insomnia, patient was admitted here on 01/29/2023 and discharged 02/06/2023 to inpatient rehab. Her diagnosis back then was bilateral lower extremity weakness and inability to ambulate. While inside the hospital patient was managed with supportive therapy. In the past patient has had multiple MRIs and has seen 3 neurologists without proper diagnosis. patient's medications include. Patient's medications include citalopram, hydrocodone, omeprazole, alprazolam, Rexulti, desvenlafaxine, gabapentin, melatonin, propranolol, quetiapine, zolpidem, lisinopril, docusate. Historical: - Allergies: 17:03 No Known Allergies; me1 - PMHx: 17:03 depressive disorder; Hypertension; me1 - Immunization history:: Adult Immunizations up to date. - Social history:: Smoking status: Reported history of juuling and/or vaping. Patient/guardian denies using tobacco, but has a distant history of tobacco abuse. - Family history:: not pertinent. ROS: 19:00 Constitutional: Negative for fever, chills, and weight loss, Eyes: Negative for injury, sp4 pain, redness, and discharge, ENT: Negative for injury, pain, and discharge, Neck: Negative for injury, pain, and swelling, Cardiovascular: Negative for chest pain, palpitations, and edema, Respiratory: Negative for shortness of breath, cough, wheezing, and pleuritic chest pain, Abdomen/GI: Negative for abdominal pain, nausea, vomiting, diarrhea, and constipation, Back: Negative for injury and pain, MS/Extremity: Negative for injury and deformity, positive bilateral lower extremity cramps positive bilateral upper extremity cramp Skin: Negative for injury, rash, and discoloration, Neuro: Negative for headache, weakness, numbness, tingling, and seizure, Psych: Negative for depression, anxiety, 19:00 All other systems are negative, Exam: 18:55 ECG was reviewed by the Attending Physician. EKG time 1735 sinus bradycardia at the sp4 rate of 54 19:00 Constitutional: This is a well developed, well nourished patient who is awake, alert, sp4 and in no acute distress. Head/Face: Normocephalic, atraumatic. Eyes: Pupils equal round and reactive to light, extra-ocular motions intact. Lids and lashes normal. Conjunctiva and sclera are not injected. Cornea within normal limits. Periorbital areas with no swelling, redness, or edema. ENT: Nares patent. No nasal discharge, no septal abnormalities noted. Tympanic membranes are normal and external auditory canals are clear. Oropharynx with no redness, swelling, or masses, exudates, or evidence of obstruction, uvula midline. Mucous membranes moist. Neck: Trachea midline, no thyromegaly or masses palpated, and no cervical lymphadenopathy. Supple, full range of motion without nuchal rigidity, or vertebral point tenderness. Chest/axilla: Normal chest wall appearance and motion. Nontender with no deformity. No lesions are appreciated. Cardiovascular: Regular rate and rhythm with a normal S1 and S2. No gallops, murmurs, or rubs. Normal PMI, no JVD. No pulse deficits. Respiratory: Lungs have equal breath sounds bilaterally, clear to auscultation and percussion. No rales, rhonchi or wheezes noted. No increased work of breathing, no retractions or nasal flaring. Abdomen/GI: Soft, non-tender, with normal bowel sounds. No distension or tympany. No guarding or rebound. No evidence of tenderness throughout. Back: No spinal tenderness. No costovertebral tenderness. Skin: Warm, dry with normal turgor. Normal color with no rashes, no lesions, and no evidence of cellulitis. MS/ Extremity: Pulses equal, no cyanosis. Neurovascular intact. Full, normal range of motion. Neuro: Awake and alert, GCS 15, oriented to person, place, time, and situation. Cranial nerves II-XII grossly intact. Motor strength 5/5 in all extremities. Sensory grossly intact. Psych: Awake, alert, with orientation to person, place and time. Behavior, mood, and affect are within normal limits Vital Signs: 17:01 BP 136 / 76; Pulse 60; Resp 18; Temp 98.3(O); Pulse Ox 95% on R/A; Weight 81.65 kg; me1 Height 5 ft. 6 in. ; Pain 6/10; 17:46 BP 165 / 92; Pulse 63; Resp 18; Pulse Ox 96% on R/A; me1 18:45 BP 153 / 88; Pulse 57; Resp 11; Pulse Ox 97% on R/A; me1 19:30 BP 159 / 78; Pulse 52; Resp 11; Pulse Ox 96% on R/A; me1 17:01 Body Mass Index 29.05 (81.65 kg, 167.64 cm) me1 17:01 Pain Scale: Adult me1 MDM: 17:12 Patient medically screened. sp4 19:17 Differential Diagnosis altered mental status, sepsis, flu. Data reviewed: vital signs, sp4 nurses notes, EMS record, old medical records, lab test result(s), EKG, radiologic studies, CT scan, plain films. Consideration of Admission/Observation Escalation of care including admission/observation considered. 19:18 ED course: Patient has unremarkable workup today. Patient reports at least 3 provide sp4 full workups for her tremors and her cramps. Patient reports 3 prior neurologist visits. She currently follows up with a neurologist. Patient was advised to see her neurologist for evaluation of tremors and cramps. At this time no sign of emergent medical condition. Stable for discharge home with as needed p.o. Robaxin. Although patient was advised to discontinue her baclofen if she takes p.o. Robaxin.. 03/06 17:11 Order name: Basic Metabolic Panel; Complete Time: 18:55 4 03/06 17:11 Order name: CBC with Diff; Complete Time: 18:55 4 03/06 17:11 Order name: LFT's; Complete Time: 18:55 4 03/06 17:11 Order name: Magnesium; Complete Time: 18:55 4 03/06 17:11 Order name: NT PRO-BNP; Complete Time: 18:55 4 03/06 17:11 Order name: PT-INR; Complete Time: 18:55 4 03/06 17:11 Order name: Troponin HS; Complete Time: 18:55 sp4 03/06 17:11 Order name: XRAY Chest (1 view); Complete Time: 18:55 sp4 03/06 17:12 Order name: CT Head Brain wo Cont; Complete Time: 18:55 sp4 03/06 17:11 Order name: EKG; Complete Time: 17:12 sp4 03/06 17:11 Order name: Cardiac monitoring; Complete Time: 17:41 sp4 03/06 17:11 Order name: EKG - Nurse/Tech; Complete Time: 17:40 sp4 03/06 17:11 Order name: IV Saline Lock; Complete Time: 17:40 sp4 03/06 17:11 Order name: Labs collected and sent; Complete Time: 17:40 4 03/06 17:11 Order name: O2 Per Protocol; Complete Time: 17:41 sp4 03/06 17:11 Order name: O2 Sat Monitoring; Complete Time: 17:41 sp4 EC:55 Rate is 54 beats/min. Rhythm is regular, Sinus bradycardia. QRS [place] is Normal. [place] sp4 interval is normal. QRS interval is normal. QT interval is normal. No Q waves. T waves are Normal. No ST changes noted. Clinical impression: No evidence of ischemia. Interpreted by me. Reviewed by me. Administered Medications: 19:49 Discontinued: ns 0.9% 1000 ml IV at 125 ml/hr continuous rv 17:40 Drug: NS 0.9% IV 1000 ml IV at 125 ml/hr continuous Route: IV; Rate: 125 ml/hr; Site: [facility] [place] left antecubital; 19:49 Follow up: IV Status: Order to discontinue infusion; IV Intake: 300ml rv 17:42 Drug: LORazepam PO 2 mg PO once Route: PO; me1 19:49 Follow up: Response: No adverse reaction rv 19:48 Drug: Methocarbamol PO 1500 mg PO once Route: PO; rv 19:49 Follow up: Response: Medication administered at discharge. rv 20:06 Follow up: Response: No adverse reaction me1 Disposition Summary: 03/06/23 19:20 Discharge Ordered Notes: No emergent medical condition found today Location: Home sp4 Problem: new sp4 Symptoms: have improved sp4 Condition: Stable sp4 Diagnosis - Cramp and spasm sp4 - Resting tremor, bilateral lower extremity cramping. sp4 Followup: sp4 - With: Declan Molina MD - When: 7 - 10 days - Reason: Recheck today's complaints Discharge Instructions: - Discharge Summary Sheet sp4 - Muscle Cramps and Spasms sp4 Forms: - SBAR form jb4 - Patient Portal Instructions sp4 Prescriptions: - methocarbamol 750 mg Oral tablet - take 1 tablet ORAL route every 8 hours; 30 tablet; Refills: 0, Product sp4 Selection Permitted Signatures: Dispatcher [employer] Robert Denise, RN RN rv Raghav Lerma MD MD sp4 Mana Urbina RN RN me1
[2023-03-06 22:31] VITALS: BP 159/78; TEMP 98.3; O2SAT 96
== END ==
LOC: ER 16:55
DX: R25.2 Cramp and spasm (principal); R25.1 Tremor, unspecified; I10 Essential (primary) hypertension
CPT/HCPCS: 93005; 85025; 80048; 36415; 83735; 85610; 80076; 84484; 83880; 70450; 71045; J7030

== ENCOUNTER → 2023-03-06 | Emergency (ER) | payer OTHER ==
[~2023-03-06] MED LIST changes: -LORAZEPAM 1 MG TABLET ONE; +NA CHLORIDE 0.9% 500 ML ONE; -methocarbamoL 750 MG TAB ONE
[2023-03-06 22:05] LABS: Absolute Lymphocytes (CBC) 2.3 K/uL (0.7-4.9); Hematocrit 40.9 % (36.0-45.0); Lymphocytes % 35.9 % (15.3-44.8); MCV 91.4 fL (80-100); MPV 9.2 fL (7.6-11.3); Platelets 280 thou/uL (152-406); RBC Red Blood Cell Count 4.47 M/uL (3.86-4.86)
[2023-03-06 22:11] LABS: Specific Gravity 1.016 (1.005-1.030); Urine Bacteria <20 /HPF (<20); Urine Bilirubin 1+ (Negative); Urine Blood Negative (Negative); Urine Clarity Extremely Turbid (Clear); Urine Color Dark-Yellow (Yellow); Urine Glucose NEGATIVE (Negative); Urine Protein NEGATIVE (Negative); Urine Urobilinogen 2+ (Normal); Urine pH 6.5 (5.0-7.0)
[2023-03-06 22:22] LABS: Albumin 3.6 g/dL (3.4-5.0); Bilirubin Direct 0.2 mg/dL (0-0.2); Bilirubin Indirect, Calculated 0.7 mg/dL (0.2-0.8); Bilirubin Total 0.9 mg/dL (0.2-1.0); Magnesium 2.2 mg/dL (1.6-2.4); Potassium 4.1 mEq/L (3.5-5.1); Troponin High Sensitivity 5.7 pg/mL (<58.9)
[2023-03-06 22:23] LABS: Protime INR 1.03
--- NOTE | 2023-03-06 22:24 | RAD REPORT ---
EXAM DESCRIPTION: RAD - Chest Single View - 03/06/2023 10:17 pm CLINICAL HISTORY: CHEST PAIN Chest pain. COMPARISON: Chest Single View dated 03/06/2023; CHEST SINGLE VIEW dated 04/01/2015; ABDOMEN ACUTE SERI ES dated 05/24/2008; ABDOMEN ACUTE SERIES dated 05/07/2002 FINDINGS: Portable technique limits examination quality. The lungs are grossly clear. The heart is normal in size. No displaced fractures. IMPRESSION: No acute intrathoracic process suspected.
--- NOTE | 2023-03-06 23:15 | ER ---
Nurse's Notes [facility] Name: Zachary Paige Age: 62 yrs Sex: Female : 1960 Arrival Date: 03/06/2023 Time: 21:29 Bed 18 Private MD: Diagnosis: Dyspnea, unspecified Presentation: 03/06 21:32 Chief complaint: EMS states: pt recently dc via EMS, became hypoxic at 90% RA, and rv bradycardic at 44. pt is awake. placed on oxygen, saturation improved to 95-96%. pt complained of SOB at the time. Coronavirus screen: At this time, the client does not indicate any symptoms associated with coronavirus-19. Ebola Screen: No symptoms or risks identified at this time. Initial Sepsis Screen: Does the patient meet any 2 criteria? No. Patient's initial sepsis screen is negative. Does the patient have a suspected source of infection? No. Patient's initial sepsis screen is negative. Risk Assessment: Do you want to hurt yourself or someone else? Patient reports no desire to harm self or others. Onset of symptoms was March 06, 2023. 21:32 Method Of Arrival: EMS: [facility] rv 21:32 Acuity: MADAN 3 rv Triage Assessment: 21:34 General: Appears comfortable, Behavior is calm, cooperative. Pain: Denies pain. Neuro: rv Level of Consciousness is awake, alert, obeys commands, Oriented to person, place, time, situation. Cardiovascular: Capillary refill < 3 seconds Patient's skin is warm and dry. Respiratory: Reports shortness of breath at rest Onset: The symptoms/episode began/occurred just prior to arrival, the patient reports symptoms have resolved. GI: No signs and/or symptoms were reported involving the gastrointestinal system. : No signs and/or symptoms were reported regarding the genitourinary system. Derm: Skin is intact. Historical: - Allergies: 21:34 No Known Allergies; rv - PMHx: 21:34 depressive disorder; Hypertension; rv - PSHx: 21:34 None; rv - Immunization history:: Adult Immunizations up to date. - Social history:: Smoking status: Patient denies any tobacco usage or history of. Screenin:35 [facility] ED Fall Risk Assessment (Adult) History of falling in the last 3 months, rv including since admission No falls in past 3 months (0 pts) Confusion or Disorientation Yes (5 pts) Impaired Gait Yes (1 pt) Score/Fall Risk Level 3 or more points = High Risk Oriented to surroundings, Maintained a safe environment, Educated pt \T\ family on fall prevention, incl call for assistance when getting out of bed, Assessed \T\ reinforced patient's understanding of fall precautions. Abuse screen: Denies threats or abuse. Denies injuries from another. Nutritional screening: No deficits noted. Tuberculosis screening: No symptoms or risk factors identified. Assessment: 22:01 General: Appears in no apparent distress. comfortable, Behavior is calm, cooperative. lg3 Pain: Denies pain. Neuro: No deficits noted. Dyer Agitation-Sedation Scale (RASS): 0 - Alert and Calm Level of Consciousness is awake, alert, obeys commands, Oriented to person, place, time, situation. Cardiovascular: No deficits noted. Denies chest pain, shortness of breath, Capillary refill < 3 seconds Clubbing of nail beds is absent JVD is absent Patient's skin is warm and dry. Rhythm is sinus bradycardia. Respiratory: No deficits noted. Airway is patent Respiratory effort is even, unlabored, Respiratory pattern is regular, symmetrical, Breath sounds are clear bilaterally. GI: No deficits noted. No signs and/or symptoms were reported involving the gastrointestinal system. : No deficits noted. No signs and/or symptoms were reported regarding the genitourinary system. EENT: No deficits noted. No signs and/or symptoms were reported regarding the EENT system. Derm: No deficits noted. No signs and/or symptoms reported regarding the dermatologic system. Skin is intact, is healthy with good turgor, Skin is dry, Skin is normal, Skin temperature is warm. Musculoskeletal: No deficits noted. No signs and/or symptoms reported regarding the musculoskeletal system. Circulation, motion, and sensation intact. Range of motion: intact in all extremities. 23:30 Reassessment: Patient appears in no apparent distress at this time. No changes from lg3 previously documented assessment. Patient and/or family updated on plan of care and expected duration. Pain level reassessed. Patient is alert, oriented x 3, equal unlabored respirations, skin warm/dry/pink. Patient denies pain at this time. Vital Signs: 21:32 BP 147 / 75; Pulse 50; Resp 19; Temp 98.1; Pulse Ox 100% on R/A; Weight 81.65 kg; rv Height 5 ft. 6 in. ; Pain 0/10; 22:01 BP 145 / 81; Pulse 52; Resp 17 S; Pulse Ox 96% on R/A; lg3 23:31 BP 133 / 82; Pulse 57; Resp 18 S; Pulse Ox 97% on R/A; lg3 21:32 Body Mass Index 29.05 (81.65 kg, 167.64 cm) rv 21:32 Pain Scale: Adult rv NIH Stroke Scale Scores: 23:15 NIHSS Score: 0 [facility] ED Course: 21:29 Patient arrived in ED. [email or web address] 21:32 Robert Batres, RN is Primary Nurse. rv 21:34 Triage completed. rv 21:34 Arm band placed on right wrist. rv 21:35 Patient has correct armband on for positive identification. Client placed on continuous rv cardiac and pulse oximetry monitoring. NIBP monitoring applied. 21:35 No provider procedures requiring assistance completed. rv 21:44 Osman Mejia MD is Attending Physician. anat 22:01 Door closed. Noise minimized. Warm blanket given. lg3 22:01 Inserted saline lock: 20 gauge in left antecubital area, using aseptic technique. Blood lg3 collected. Patient maintains SpO2 saturation greater than 95% on room air. 22:18 XRAY Chest (1 view) In Process Unspecified. EDMS 23:31 IV discontinued, intact, bleeding controlled, No redness/swelling at site. Pressure lg3 dressing applied. 23:32 ARTERIAL BLOOD GAS Sent. lg3 Administered Medications: 22:10 Drug: NS 0.9% IV 500 ml IV at bolus once Route: IV; Rate: bolus; Site: left antecubital;lg3 23:32 Follow up: IV Status: Completed infusion; IV Intake: 500ml lg3 22:10 Drug: NS 0.9% IV 1000 ml IV at 125 ml/hr continuous Route: IV; Rate: 125 ml/hr; Site: lg3 left antecubital; 23:32 Follow up: IV Status: Completed infusion; IV Intake: 300ml lg3 Medication: 21:35 VIS not applicable for this client. rv Intake: 23:32 IV: 300ml; Total: 300ml. lg3 23:32 IV: 500ml; Total: 800ml. lg3 Outcome: 23:15 Discharge ordered by . anat 23:31 Discharged to home via ambulance, lg3 23:31 Condition: stable 23:31 Discharge instructions given to patient, Instructed on discharge instructions, follow up and referral plans. Demonstrated understanding of instructions, follow-up care, 03/07 00:08 Patient left the ED. lg3 NIH Stroke Scale - NIH Stroke Score Date: 03/06/2023 Time: 23:15 Total Score = 0 10. Dysarthria (speech clarity - read or repeat words) - 0(Normal) 11. Extinction and Inattention (visual/tactile/auditory/spatial/personal) - 0(No abnormality) 1a. Level of Consciousness (LOC) - 0(Alert) 1b. Level of Consciousness (LOC) (Month \T\ Age) - 0(Both) 1c. LOC Commands (Open \T\ Closes Eyes/Storage Wharfage Clerk) - 0(Both) 2. Best Gaze (Lateral Gaze Paresis) - 0(Normal) 3. Visual Field Loss - 0(No visual loss) 4. Facial Palsy - 0(Normal) 5a. Left Arm: Motor (10-second hold) - 0(No drift) 5b. Right Arm: Motor (10-second hold) - 0(No drift) 6a. Left Leg: Motor (5-second hold - always test supine) - 0(No drift) 6b. Right Leg: Motor (5-second hold - always test supine) - 0(No drift) 7. Limb Ataxia (finger/nose \T\ heel/ulloa - test with eyes open) - 0(Absent) 8. Sensory Loss (pinprick arms/legs/face) - 0(Normal) 9. Best Language: Aphasia (description/naming/reading) - 0(No aphasia) Initials: anat Signatures: Dispatcher [employer] EDOsman Barnett MD MD cha Vicente, Ronaldo RN Martine Godinez RN RN lg3 Jeffries, Jennifer [email or web address]
--- NOTE | 2023-03-06 23:15 | EDPHYS ---
Physician Documentation [facility] Name: Zachary Paige Age: 62 yrs Sex: Female : 1960 Arrival Date: 03/06/2023 Time: 21:29 Bed 18 Private MD: ED Physician Osman Mejia HPI: 03/06 22:57 This 62 yrs old Female presents to ER via EMS with complaints of Shortness Of anat Breath. 22:57 The patient has shortness of breath at rest, with light activity. Onset: The anat symptoms/episode began/occurred just prior to arrival. Duration: The symptoms are continuous, but are steadily getting better. The patient's shortness of breath has no apparent modifying factors. Associated signs and symptoms: The patient has no apparent associated signs or symptoms. The patient has experienced similar episodes in the past, several times. Historical: - Allergies: 21:34 No Known Allergies; rv - PMHx: 21:34 depressive disorder; Hypertension; rv - PSHx: 21:34 None; rv - Immunization history:: Adult Immunizations up to date. - Social history:: Smoking status: Patient denies any tobacco usage or history of. ROS: 23:01 Constitutional: Negative for fever, chills, and weight loss, Eyes: Negative for injury, anat pain, redness, and discharge, ENT: Negative for injury, pain, and discharge, Neck: Negative for injury, pain, and swelling, Cardiovascular: Negative for chest pain, palpitations, and edema, Respiratory: Negative for shortness of breath, cough, wheezing, and pleuritic chest pain, Abdomen/GI: Negative for abdominal pain, nausea, vomiting, diarrhea, and constipation, Back: Negative for injury and pain, : Negative for injury, bleeding, discharge, and swelling, MS/Extremity: Negative for injury and deformity, Skin: Negative for injury, rash, and discoloration, Neuro: Negative for headache, weakness, numbness, tingling, and seizure, Psych: Negative for depression, anxiety, suicide ideation, homicidal ideation, and hallucinations, Allergy/Immunology: Negative for hives, rash, and allergies, Endocrine: Negative for neck swelling, polydipsia, polyuria, polyphagia, and marked weight changes, Hematologic/Lymphatic: Negative for swollen nodes, abnormal bleeding, and unusual bruising, Exam: 23:04 Constitutional: This is a well developed, well nourished patient who is awake, alert, anat and in no acute distress. Head/Face: Normocephalic, atraumatic. Eyes: Pupils equal round and reactive to light, extra-ocular motions intact. Lids and lashes normal. Conjunctiva and sclera are non-icteric and not injected. Cornea within normal limits. Periorbital areas with no swelling, redness, or edema. ENT: Nares patent. No nasal discharge, no septal abnormalities noted. Tympanic membranes are normal and external auditory canals are clear. Oropharynx with no redness, swelling, or masses, exudates, or evidence of obstruction, uvula midline. Mucous membranes moist. Neck: Trachea midline, no thyromegaly or masses palpated, and no cervical lymphadenopathy. Supple, full range of motion without nuchal rigidity, or vertebral point tenderness. No Meningismus. Chest/axilla: Normal chest wall appearance and motion. Nontender with no deformity. No lesions are appreciated. Cardiovascular: Regular rate and rhythm with a normal S1 and S2. No gallops, murmurs, or rubs. Normal PMI, no JVD. No pulse deficits. Respiratory: Lungs have equal breath sounds bilaterally, clear to auscultation and percussion. No rales, rhonchi or wheezes noted. No increased work of breathing, no retractions or nasal flaring. Abdomen/GI: Soft, non-tender, with normal bowel sounds. No distension or tympany. No guarding or rebound. No evidence of tenderness throughout. Back: No spinal tenderness. No costovertebral tenderness. Full range of motion. Female : Normal external genitalia. Skin: Warm, dry with normal turgor. Normal color with no rashes, no lesions, and no evidence of cellulitis. MS/ Extremity: Pulses equal, no cyanosis. Neurovascular intact. Full, normal range of motion. Neuro: Awake and alert, GCS 15, oriented to person, place, time, and situation. Cranial nerves II-XII grossly intact. Motor strength 5/5 in all extremities. Sensory grossly intact. Cerebellar exam normal. Normal gait. Psych: Awake, alert, with orientation to person, place and time. Behavior, mood, and affect are within normal limits. 23:04 ECG was reviewed by the Attending Physician. anat 23:15 Musculoskeletal/extremity: ROM: no acute changes, intact in all extremities, anat Circulation is intact in all extremities. Compartment Syndrome exam of affected extremity: is normal. no pain, no numbness, no tingling, no sensation deficit, no palor, no weak pulses, DVT Exam: No signs of deep vein thrombosis. no pain, no swelling, no tenderness, negative Homans' sign noted on exam, no appreciated bluish discoloration, no erythema, no increased warmth, Vital Signs: 21:32 BP 147 / 75; Pulse 50; Resp 19; Temp 98.1; Pulse Ox 100% on R/A; Weight 81.65 kg; rv Height 5 ft. 6 in. ; Pain 0/10; 22:01 BP 145 / 81; Pulse 52; Resp 17 S; Pulse Ox 96% on R/A; lg3 23:31 BP 133 / 82; Pulse 57; Resp 18 S; Pulse Ox 97% on R/A; lg3 21:32 Body Mass Index 29.05 (81.65 kg, 167.64 cm) rv 21:32 Pain Scale: Adult rv NIH Stroke Scale Scores: 23:15 NIHSS Score: 0 anat MDM: 21:44 Patient medically screened. anat 23:06 Differential diagnosis: Anemia asthma, Bronchitis CHF exacerbation, Chronic Obstructive anat Pulmonary Disease Myocardial Infarction pneumonia, pulmonary edema, Pulmonary Embolism reactive airway disease, Sepsis Unstable Angina. Antibiotic administration: Not indicated. Differential Diagnosis: Obstructed Airway Bronchitis Influenza Pharyngitis Asthma Exacerbation Viral Syndrome Pneumonia. Immunization status: Influenza vaccine: within last 5 years. Data reviewed: vital signs, nurses notes, lab test result(s), EKG, radiologic studies, plain films. Consideration of Admission/Observation Escalation of care including admission/observation considered. I considered the following discharge prescriptions or medication management in the emergency department Medications were administered in the Emergency Department. See MAR. Independent interpretation of the following test(s) in the Emergency Department EKG: See my EKG interpretation above. Test considered but Not performed: CT: no ct chest ro pe. Historians other than the Patient: EMS: ems well informed. Care significantly affected by the following chronic conditions: Hypertension, depression. Counseling: I had a detailed discussion with the patient and/or guardian regarding the historical points, exam findings, and any diagnostic results supporting the discharge/admit diagnosis, lab results, radiology results, the need for outpatient follow up, for definitive care, a family practitioner, a legal researcher. 03/06 21:48 Order name: Basic Metabolic Panel; Complete Time: 22:29 [facility] 03/06 21:48 Order name: CBC with Diff; Complete Time: 22:29 [facility] 03/06 21:48 Order name: LFT's; Complete Time: 22:29 [facility] 03/06 21:48 Order name: Magnesium; Complete Time: 22:29 [facility] 03/06 21:48 Order name: NT PRO-BNP; Complete Time: 22:29 [facility] 03/06 21:48 Order name: PT-INR; Complete Time: 22:29 [facility] 03/06 21:48 Order name: Troponin HS; Complete Time: 22:29 [facility] 03/06 21:48 Order name: ABG [facility] 03/06 21:48 Order name: Urinalysis w/ reflexes; Complete Time: 22:29 [facility] 03/06 21:48 Order name: XRAY Chest (1 view); Complete Time: 22:29 [facility] 03/06 23:30 Order name: ARTERIAL BLOOD GAS [facility] 03/06 21:48 Order name: EKG; Complete Time: 21:48 [facility] 03/06 21:48 Order name: Cardiac monitoring; Complete Time: 21:50 [facility] 03/06 21:48 Order name: EKG - Nurse/Tech; Complete Time: 21:50 [facility] 03/06 21:48 Order name: IV Saline Lock; Complete Time: 22:03 [facility] 03/06 21:48 Order name: Labs collected and sent; Complete Time: 22:03 [facility] 03/06 21:48 Order name: O2 Per Protocol; Complete Time: 21:50 [facility] 03/06 21:48 Order name: O2 Sat Monitoring; Complete Time: 21:50 [facility] EC:04 Rate is 53 beats/min. Rhythm is regular. QRS [place] is Normal. [place] interval is normal. QRS anat interval is normal. QT interval is normal. No Q waves. T waves are Normal. No ST changes noted. Clinical impression: Sinus bradycardia and No evidence of ischemia. Interpreted by me. Reviewed by me. Administered Medications: 22:10 Drug: NS 0.9% IV 500 ml IV at bolus once Route: IV; Rate: bolus; Site: left antecubital;lg3 23:32 Follow up: IV Status: Completed infusion; IV Intake: 500ml lg3 22:10 Drug: NS 0.9% IV 1000 ml IV at 125 ml/hr continuous Route: IV; Rate: 125 ml/hr; Site: lg3 left antecubital; 23:32 Follow up: IV Status: Completed infusion; IV Intake: 300ml lg3 Disposition Summary: 03/06/23 23:15 Discharge Ordered Notes: Location: Home anat Problem: new anat Symptoms: have improved anat Condition: Stable anat Diagnosis - Dyspnea, unspecified anat Followup: anat - With: Private Physician - When: 2 - 3 days - Reason: Recheck today's complaints, Continuance of care, Re-evaluation by your physician Discharge Instructions: - Discharge Summary Sheet anat - Shortness of Breath, Adult anat - Shortness of Breath, Adult, [id number] anat Forms: - Medication Reconciliation Form anat - Thank You Letter anat - Antibiotic Education anat - Prescription Opioid Use anat - Patient Portal Instructions anat - Leadership Thank You Letter anat NIH Stroke Scale - NIH Stroke Score Date: 03/06/2023 Time: 23:15 Total Score = 0 10. Dysarthria (speech clarity - read or repeat words) - 0(Normal) 11. Extinction and Inattention (visual/tactile/auditory/spatial/personal) - 0(No abnormality) 1a. Level of Consciousness (LOC) - 0(Alert) 1b. Level of Consciousness (LOC) (Month \T\ Age) - 0(Both) 1c. LOC Commands (Open \T\ Closes Eyes/Customer Service Cashier) - 0(Both) 2. Best Gaze (Lateral Gaze Paresis) - 0(Normal) 3. Visual Field Loss - 0(No visual loss) 4. Facial Palsy - 0(Normal) 5a. Left Arm: Motor (10-second hold) - 0(No drift) 5b. Right Arm: Motor (10-second hold) - 0(No drift) 6a. Left Leg: Motor (5-second hold - always test supine) - 0(No drift) 6b. Right Leg: Motor (5-second hold - always test supine) - 0(No drift) 7. Limb Ataxia (finger/nose \T\ heel/ulloa - test with eyes open) - 0(Absent) 8. Sensory Loss (pinprick arms/legs/face) - 0(Normal) 9. Best Language: Aphasia (description/naming/reading) - 0(No aphasia) Initials: anat Signatures: Dispatcher [employer] Osman Crow MD MD cha Vicente, Ronaldo, RN RN rv AbleMartine RN RN lg3
[2023-03-06 23:24] LABS: Blood O2 Saturation 94.9 % (92-98.5)
[2023-03-06 23:25] LABS: Arterial Blood Carboxyhemoglob 0.8 % (0-1.5); Blood Gas Oxyhemoglobin 92.4 % (94-97)
[2023-03-07 02:59] VITALS: TEMP 98.1
[2023-03-07 03:17] VITALS: BP 133/82; O2SAT 97
== END ==
LOC: ER 21:29
DX: R06.00 Dyspnea, unspecified (principal); I10 Essential (primary) hypertension
CPT/HCPCS: 93005; 85025; 81001; 80048; 36415; 83735; 85610; 80076; 84484; 83880; 71045; 82805 ×2; 36600; J7040; J7030

== ENCOUNTER 2023-03-16 18:04 | Emergency (ER) | payer OTHER ==
[2023-03-16] MEDS ORDERED: ONDANSETRON 4 MG/2 ML VIAL ONE (18:57)
[2023-03-16] MEDS ORDERED: KETOROLAC 30 MG/ML INJ ONE (18:57)
[2023-03-16] MEDS ORDERED: NA CHLORIDE 0.9% 1,000 ML ONE (18:58)
[2023-03-16 19:13] LABS: Absolute Basophils 0.1 K/uL (0-0.5); Absolute Eosinophils 0.1 K/uL (0-0.5); Absolute Lymphocytes (CBC) 2.7 K/uL (0.7-4.9); Absolute Monocytes 0.5 K/uL (0.1-1.3); Absolute Neutrophil 3.9 K/uL (1.8-8.0); Basophils % 0.8 % (0-1.3); Eosinophils % 1.8 % (0-4.4); Hematocrit 43.2 % (36.0-45.0); Hemoglobin 14.2 g/dL (12.0-15.0); Lymphocytes % 36.9 % (15.3-44.8); MCHC 32.9 g/dL (32.0-36.0); MCV 91.2 fL (80-100); Monocytes % 7.4 % (3.3-12.3); Neutrophils % 53.1 % (41.7-73.7); Nucleated Red Blood Cells % 0.1 % (0-0); Platelets 272 thou/uL (152-406); RBC Red Blood Cell Count 4.73 M/uL (3.86-4.86); Red Cell Distribution Width 14.5 % (12.1-15.2)
[2023-03-16 19:19] LABS: Albumin 3.5 g/dL (3.4-5.0); Anion Gap 9.6 mEq/L (5.0-15.0); Bilirubin Total 0.6 mg/dL (0.2-1.0); Globulin 3.5 g/dL (2.3-3.5); Potassium 4.6 mEq/L (3.5-5.1)
--- NOTE | 2023-03-16 21:20 | RAD REPORT ---
EXAM DESCRIPTION: CT - Abdomen Pelvis W Contrast - 03/16/2023 8:13 pm CLINICAL HISTORY: ABD PAIN COMPARISON: Abdomen Pelvis W Contrast dated 01/27/2023; Abdomen Pelvis W Contrast dated 10/10/2021 ; CT ABD PELVIS W CONTRAST dated 04/01/2015; CT ABD PELVIS W CONTRAST dated 09/14/2008 TECHNIQUE: Thin cut axial CT imaging of the abdomen and pelvis was performed following intravenous a dministration of Isovue 300. Multiplanar reformats were generated and reviewed. All CT scans are performed using dose optimization technique as appropriate and may include automated exposure control or mA/KV adjustment according to patient size. FINDINGS: No suspicious findings in the lung bases. The liver, spleen, and pancreas show no suspicious findings. Stable left adrenal 1.8 cm nodule. Gallb ladder and biliary tree are also without suspicious finding. Symmetric renal function is seen with no hydronephrosis or suspicious renal mass. No dilated bowel loops or bowel wall thickening. Large stool burden most notably in the sigmoid and r ectum. No free air, free fluid or inflammatory stranding. No hernia, mass or bulky lymphadenopathy. T he urinary bladder is without significant finding. No suspicious bony findings. IMPRESSION: No acute intra-abdominal process. Large stool burden most notably in the sigmoid colon and rectum. Stable indeterminate left adrenal 1.3 cm nodule, suggestive of an adenoma.
[2023-03-16] MEDS ORDERED: FLEET ENEMA ADULT PR ONE (21:32)
[2023-03-16] MEDS ORDERED: BISACODYL E.C. 5 MG TAB PO ONE (21:43)
--- NOTE | 2023-03-16 22:16 | ER ---
Nurse's Notes [facility] Name: Zachary Paige Age: 62 yrs Sex: Female : 1960 Arrival Date: 03/16/2023 Time: 18:04 Bed 19 [facility] MD: Diagnosis: Constipation Presentation: 03/16 18:06 Chief complaint: EMS states: CONSTIPATION x7 DAYS. Coronavirus screen: At this time, bp the client does not indicate any symptoms associated with coronavirus-19. Ebola Screen: No symptoms or risks identified at this time. Initial Sepsis Screen: Does the patient meet any 2 criteria? No. Patient's initial sepsis screen is negative. Does the patient have a suspected source of infection? No. Patient's initial sepsis screen is negative. Risk Assessment: Do you want to hurt yourself or someone else? Patient reports no desire to harm self or others. Onset of symptoms is unknown. 18:06 Method Of Arrival: EMS: [facility] bp 18:06 Acuity: MADAN 3 bp Historical: - Allergies: 18:07 No Known Allergies; bp - Home Meds: 18:07 gabapentin 300 mg oral capsule 1 cap 2 times per day [Active]; zolpidem 10 mg Oral bp tablet 1 tab every day at bedtime [Active]; melatonin 10 mg Oral tablet 1 tab every day at bedtime [Active]; quetiapine 100 mg oral tablet 1 tab 2 times per day [Active]; lisinopril 10 mg Oral tablet 1 tab daily [Active]; desvenlafaxine 100 mg oral Tablet, Extended Release 24 hr 1 tab daily [Active]; propranolol 120 mg Oral Capsule, ER 24 hr 1 caps daily [Active]; omeprazole 40 mg Oral capsule,delayed release (e.c.) 1 cap daily [Active]; Rexulti 2 mg oral tablet 1 tab daily [Active]; alprazolam 0.5 mg Oral tablet 1 tab 3 times per day [Active]; - PMHx: 18:07 depressive disorder; Hypertension; bp - Immunization history:: Adult Immunizations up to date. - Social history:: Smoking status: Patient denies any tobacco usage or history of. Screenin:59 [facility] ED Fall Risk Assessment (Adult) History of falling in the last 3 months, km8 including since admission No falls in past 3 months (0 pts) Confusion or Disorientation No (0 pts) Intoxicated or Sedated No (0 pts) Impaired Gait No (0 pts) Mobility Assist Device Used No (0 pt) Altered Elimination No (0 pt) Score/Fall Risk Level 0 - 2 = Low Risk Oriented to surroundings, Maintained a safe environment, Educated pt \T\ family on fall prevention, incl call for assistance when getting out of bed, Assessed \T\ reinforced patient's understanding of fall precautions. Abuse screen: Denies threats or abuse. Denies injuries from another. Nutritional screening: No deficits noted. Tuberculosis screening: No symptoms or risk factors identified. Assessment: 19:59 Reassessment: Patient appears in no apparent distress at this time. No changes from 8 previously documented assessment. Patient and/or family updated on plan of care and expected duration. Pain level reassessed. Patient is alert, oriented x 3, equal unlabored respirations, skin warm/dry/pink. 21:00 Reassessment: Patient appears in no apparent distress at this time. No changes from km8 previously documented assessment. Patient and/or family updated on plan of care and expected duration. Pain level reassessed. Patient is alert, oriented x 3, equal unlabored respirations, skin warm/dry/pink. 22:00 Reassessment: Patient appears in no apparent distress at this time. Patient is alert, km8 oriented x 3, equal unlabored respirations, skin warm/dry/pink. after enema pt had 2 good sized BM's; provider notifed. 22:30 General: pt states she needs transportation to take her home; transportation arranged km8 ETA 0100; pt educated on transportation ETA; no needs at this time. 23:00 Reassessment: Patient appears in no apparent distress at this time. No changes from km8 previously documented assessment. Vital Signs: 18:06 BP 134 / 74; Pulse 86; Resp 16; Temp 98; Pulse Ox 98% ; bp 20:00 BP 173 / 80; Pulse 70; Resp 16; Pulse Ox 97% on R/A; km8 21:00 BP 160 / 85; Pulse 67; Resp 16; Pulse Ox 97% on R/A; km8 0206 00:25 BP 151 / 79; Pulse 68; Resp 16; Pulse Ox 97% on R/A; km8 [place] Coma Score: 03/16 19:59 Eye Response: spontaneous(4). Motor Response: obeys commands(6). Verbal Response: km8 oriented(5). Total: 15. ED Course: 18:06 Patient arrived in ED. bp 18:06 Lauren Carpenter FNP-C is [facility]. kb 18:06 Osman Mejia MD is Attending Physician. kb 18:07 Triage completed. bp 18:15 Drew Jimenez, RN is Primary Nurse. bp 18:54 Inserted saline lock: 22 gauge in right forearm, using aseptic technique. Blood bp collected. 19:59 Patient maintains SpO2 saturation greater than 95% on room air. km8 19:59 Patient has correct armband on for positive identification. Bed in low position. Call km8 light in reach. Side rails up X2. Pulse ox on. NIBP on. Warm blanket given. 19:59 Arm band placed on right wrist. km8 20:15 CT Abd/Pelvis - IV Contrast Only In Process Unspecified. EDMS 20:25 Primary Nurse role handed off by Drew Jimenez RN km8 20:25 Viviane Dickens, KATEY is Primary Nurse. km8 22:15 No provider procedures requiring assistance completed. IV discontinued, intact, km8 bleeding controlled, No redness/swelling at site. Pressure dressing applied. 22:15 Provided Education on: d/c teaching. km8 Administered Medications: 19:01 Drug: NS 0.9% IV 1000 ml IV at 1000 ml once Route: IV; Rate: 1000 ml; Site: right bp forearm; 21:18 Follow up: IV Status: Completed infusion; IV Intake: 1000ml km8 19:02 Drug: Ondansetron IVP 4 mg IVP once; over 2 minutes Route: IVP; Site: right antecubital;bp 21:18 Follow up: Response: No adverse reaction km8 19:02 Drug: Ketorolac IVP 15 mg IVP once Route: IVP; Site: right forearm; bp 21:18 Follow up: Response: No adverse reaction km8 21:53 Drug: Fleet Enema IA 133 ml IA once; may repeat once Route: IA; km8 22:15 Follow up: Response: No adverse reaction; Other; pt able to have BM km8 21:53 Drug: Dulcolax PO Delayed Release Tablet 5 mg PO once Route: PO; km8 23:13 Follow up: Response: No adverse reaction km8 Medication: 22:15 VIS not applicable for this client. km8 Intake: 21:18 IV: 1000ml; Total: 1000ml. km8 Outcome: 22:15 Discharge ordered by MD. khan 22:30 Discharge instructions given to patient, Instructed on discharge instructions, follow km8 up and referral plans. Demonstrated understanding of instructions, follow-up care, 22:30 Condition: improved km8 03/17 00:27 Discharged to home via ambulance, km8 00:28 Patient left the ED. km8 Signatures: Dispatcher [employer] EDMS Lauren Carpenter, CO FOUNDER-C ALVIN-Drew Everett, RN RN Viviane Dickens, KATEY RN km8 Corrections: (The following items were deleted from the chart) 03/16 23:14 22:30 General: pt states she needs transportation to take her home; transportation km8 arranged ETA 0100; pt educated on transportation ETA; no needs at this time. km8
--- NOTE | 2023-03-16 22:16 | EDPHYS ---
Physician Documentation [facility] Name: Zachary Paige Age: 62 yrs Sex: Female : 1960 Arrival Date: 03/16/2023 Time: 18:04 Bed 19 Private MD: ED Physician Osman Mejia HPI: 03/16 19:13 This 62 yrs old Female presents to ER via EMS with complaints of Constipation. kb 19:13 Pt is a 62 year old female who presents with constipation, nausea and abd pain that kb started 7 days ago. Denies fever, vomiting, urinary symptoms. . Historical: - Allergies: 18:07 No Known Allergies; bp - Home Meds: 18:07 gabapentin 300 mg oral capsule 1 cap 2 times per day [Active]; zolpidem 10 mg Oral bp tablet 1 tab every day at bedtime [Active]; melatonin 10 mg Oral tablet 1 tab every day at bedtime [Active]; quetiapine 100 mg oral tablet 1 tab 2 times per day [Active]; lisinopril 10 mg Oral tablet 1 tab daily [Active]; desvenlafaxine 100 mg oral Tablet, Extended Release 24 hr 1 tab daily [Active]; propranolol 120 mg Oral Capsule, ER 24 hr 1 caps daily [Active]; omeprazole 40 mg Oral capsule,delayed release (e.c.) 1 cap daily [Active]; Rexulti 2 mg oral tablet 1 tab daily [Active]; alprazolam 0.5 mg Oral tablet 1 tab 3 times per day [Active]; - PMHx: 18:07 depressive disorder; Hypertension; bp - Immunization history:: Adult Immunizations up to date. - Social history:: Smoking status: Patient denies any tobacco usage or history of. ROS: 19:13 Constitutional: Negative for fever, chills, and weight loss, kb 19:13 Abdomen/GI: Positive for abdominal pain, nausea, constipation, 19:13 All other systems are negative, Exam: 19:13 Constitutional: This is a well developed, well nourished patient who is awake, alert, kb and in no acute distress. Head/Face: Normocephalic, atraumatic. ENT: Moist Mucous membranes Cardiovascular: Regular rate Respiratory: Respirations even and unlabored. No increased work of breathing. Talking in full sentences Skin: Warm, dry with normal turgor. Normal color. MS/ Extremity: Pulses equal, no cyanosis. Neurovascular intact. Full, normal range of motion. Neuro: Awake and alert, GCS 15, oriented to person, place, time, and situation. Moves all extremities. Normal gait. 19:13 Abdomen/GI: Inspection: abdomen appears normal, Bowel sounds: normal, Palpation: soft, in all quadrants, mild abdominal tenderness, in all quadrants, Vital Signs: 18:06 BP 134 / 74; Pulse 86; Resp 16; Temp 98; Pulse Ox 98% ; bp 20:00 BP 173 / 80; Pulse 70; Resp 16; Pulse Ox 97% on R/A; km8 21:00 BP 160 / 85; Pulse 67; Resp 16; Pulse Ox 97% on R/A; km8 02 00:25 BP 151 / 79; Pulse 68; Resp 16; Pulse Ox 97% on R/A; km8 [place] Coma Score: 03/16 19:59 Eye Response: spontaneous(4). Motor Response: obeys commands(6). Verbal Response: km8 oriented(5). Total: 15. MDM: 18:06 Patient medically screened. kb 19:15 Differential diagnosis: non-specific abd pain, constipation, bowel obstruction. Data kb reviewed: vital signs, nurses notes. Historians other than the Patient: EMS: [facility]. 22:15 Counseling: I had a detailed discussion with the patient and/or guardian regarding the kb historical points, exam findings, and any diagnostic results supporting the discharge/admit diagnosis, lab results, radiology results, the need for outpatient follow up, a family practitioner, to return to the emergency department if symptoms worsen or persist or if there are any questions or concerns that arise at home. 03/16 18:06 Order name: CBC with Diff; Complete Time: 19:15 kb 03/16 18:06 Order name: CMP; Complete Time: 19:21 kb 03/16 18:06 Order name: Lipase; Complete Time: 19:21 kb 03/16 18:06 Order name: CT Abd/Pelvis - IV Contrast Only; Complete Time: 21:28 kb 03/16 18:06 Order name: IV Saline Lock; Complete Time: 18:53 kb 03/16 18:06 Order name: Labs collected and sent; Complete Time: 18:53 kb Administered Medications: 19:01 Drug: NS 0.9% IV 1000 ml IV at 1000 ml once Route: IV; Rate: 1000 ml; Site: right bp forearm; 21:18 Follow up: IV Status: Completed infusion; IV Intake: 1000ml km8 19:02 Drug: Ketorolac IVP 15 mg IVP once Route: IVP; Site: right forearm; bp 21:18 Follow up: Response: No adverse reaction km8 19:02 Drug: Ondansetron IVP 4 mg IVP once; over 2 minutes Route: IVP; Site: right antecubital;bp 21:18 Follow up: Response: No adverse reaction km8 21:53 Drug: Fleet Enema OK 133 ml OK once; may repeat once Route: OK; km8 22:15 Follow up: Response: No adverse reaction; Other; pt able to have BM km8 21:53 Drug: Dulcolax PO Delayed Release Tablet 5 mg PO once Route: PO; km8 23:13 Follow up: Response: No adverse reaction km8 Disposition Summary: 03/16/23 22:15 Discharge Ordered Notes: Location: Home kb Condition: Stable kb Diagnosis - Constipation kb Followup: kb - With: Emergency Department - When: As needed - Reason: Worsening of condition Followup: kb - With: Private Physician - When: 2 - 3 days - Reason: Recheck today's complaints, Continuance of care, Re-evaluation by your physician Discharge Instructions: - Discharge Summary Sheet kb - Constipation, Adult, [id number] kb Forms: - Medication Reconciliation Form kb - Thank You Letter kb - Antibiotic Education kb - Prescription Opioid Use kb - Patient Portal Instructions kb - Leadership Thank You Letter kb Signatures: Dispatcher [employer] Lauren Pierre, ALVIN-Shreya LIAOP-Drew Everett, RN RN bp Viviane Dickens, RN RN km8
[2023-03-17 18:17] VITALS: TEMP 98
[2023-03-17 18:35] VITALS: BP 151/79; O2SAT 97
== END 2023-03-17 00:28 | disposition home or self-care (01) ==
LOC: ER 18:04
DX: K59.00 Constipation, unspecified (principal)
CPT/HCPCS: 85025; 36415; 83690; 80053; 74177; 99285; Q9967; J2405; J7030